=== PATIENT | female | born 1950 | race Caucasian/White ===

== ENCOUNTER 2017-03-21 10:32 | Outpatient (CLI) | payer MEDICARE, OTHER | END 2017-03-21 10:33 | disposition home or self-care (01) | LOC: BICMAMMO 10:32 | PROVIDERS: ATTEND Internal Medicine | DX: Z12.31 Encounter for screening mammogram for malignant neoplasm of breast (principal) | CPT/HCPCS: 77063; 77067 ==

== ENCOUNTER 2017-08-22 09:02 | Emergency (ER) | payer MEDICARE, OTHER ==
[2017-08-22 10:09] LABS: Hemoglobin 13.2 g/dL (12.0-16.0); Mean Corpuscular HGB CONC 33.6 g/dL (32.0-36.0); Mean Corpuscular Hemoglobin 31.5 pg (27.0-31.0); Mean Corpuscular Volume 93.9 fL (78.0-98.0); Mean Platelet Volume 7.4 fL (7.4-10.4); Platelet Count 227 thou/uL (130-400); RBC Distribution Width 12.8 % (11.5-14.5); Red Blood Cell (RBC) Count 4.19 mill/uL (4.20-5.40); White Blood Cell (WBC) Count 4.7 thou/uL (4.8-10.8)
[2017-08-22 10:32] LABS: Band 31 % (5-11); Lymphocytes 16 % (21-51); MDiff Complete? YES; Monocytes 11 % (0-10); Neutrophil 42 % (42-75); RBC Morphology Normal
[2017-08-22 10:38] LABS: ALT (SGPT) 19 U/L (8-55); AST (SGOT) 26 U/L (5-34); Albumin 3.8 g/dL (3.4-4.8); Alkaline Phosphatase 72 U/L (40-150); Anion Gap 14 mmol/L (10-20); BUN (Urea Nitrogen) 13 mg/dL (9.8-20.1); Bilirubin, Total 0.4 mg/dL (0.2-1.2); Calc. Creatinine Clearance 0 mL/min (70-130); Calcium 8.7 mg/dL (7.8-10.44); Carbon Dioxide 24 mmol/L (23-31); Chloride 98 mmol/L (98-107); Estimated GFR-MDRD 77; Globulin 2.4 g/dL (2.4-3.5); Glucose 95 mg/dL (80-115); Lipase 30 U/L (8-78); Magnesium 1.9 mg/dL (1.6-2.6); Protein, Total 6.2 g/dL (6.0-8.3); Sodium 133 mmol/L (136-145)
[2017-08-22 10:57] LABS: Potassium 2.8 mmol/L (3.5-5.1)
[2017-08-22] MEDS ORDERED: Potassium Chloride 20 MEQ/100 ML PREMIX BAG ONE (11:28)
[2017-08-22] MEDS ORDERED: Potassium Chloride 20 MEQ TAB ONE (11:29)
[2017-08-22] MEDS ORDERED: Potassium Chloride 20 MEQ in Premix Bag 1 BAG IVPB SCH (11:30)
== END 2017-08-22 12:48 | disposition home or self-care (01) ==
LOC: ERS 09:02
DX: E87.6 Hypokalemia (principal); E78.5 Hyperlipidemia, unspecified; I10 Essential (primary) hypertension; F41.9 Anxiety disorder, unspecified; F17.210 Nicotine dependence, cigarettes, uncomplicated; Z79.899 Other long term (current) drug therapy
CPT/HCPCS: 80053; 82274; 83690; 83735; 85025; 93005; 96361; 96365; J3480

== ENCOUNTER 2017-09-25 19:24 | Observation (INO) | payer MEDICARE, OTHER ==
[2017-09-25 20:13] LABS: Hemoglobin 14.9 g/dL (12.0-16.0); Mean Corpuscular HGB CONC 34.7 g/dL (32.0-36.0); Mean Corpuscular Hemoglobin 32.7 pg (27.0-31.0); Mean Corpuscular Volume 94.2 fL (78.0-98.0); Mean Platelet Volume 7.7 fL (7.4-10.4); Platelet Count 210 thou/uL (130-400); Red Blood Cell (RBC) Count 4.55 mill/uL (4.20-5.40); White Blood Cell (WBC) Count 6.6 thou/uL (4.8-10.8)
[2017-09-25 20:23] LABS: ALT (SGPT) 13 U/L (8-55); AST (SGOT) 14 U/L (5-34); Albumin 4.5 g/dL (3.4-4.8); Alkaline Phosphatase 68 U/L (40-150); Anion Gap 12 mmol/L (10-20); BUN (Urea Nitrogen) 14 mg/dL (9.8-20.1); Band 4 % (5-11); Bilirubin, Total 0.6 mg/dL (0.2-1.2); CK (CPK) 80 U/L (29-168); Calc. Creatinine Clearance 0 mL/min (70-130); Calcium 9.4 mg/dL (7.8-10.44); Carbon Dioxide 23 mmol/L (23-31); Chloride 106 mmol/L (98-107); Estimated GFR-MDRD 85; Globulin 2.5 g/dL (2.4-3.5); Glucose 103 mg/dL (80-115); Lipase 38 U/L (8-78); Lymphocytes 17 % (21-51); MDiff Complete? YES; Monocytes 7 % (0-10); Neutrophil 72 % (42-75); PLT Morphology Comment Appears Adequate; Potassium 3.9 mmol/L (3.5-5.1); Sodium 137 mmol/L (136-145)
[2017-09-25 20:27] LABS: CKMB 1.9 ng/mL (0-6.6); Troponin I Less than 0.010 ng/mL (< 0.028)
--- NOTE | 2017-09-25 20:34 | RAD ---
CHEST ONE VIEW: History: Chest pain. FINDINGS: Cardiac silhouette is magnified by projection. Pulmonary vasculature is unremarkable. Mediastinum is midline with aortic calcification. No confluent airspace consolidation or evidence of pneumothorax. C ardiac monitor leads overlie the chest. IMPRESSION: Atherosclerosis. POS: [facility]
[2017-09-25 22:51] LABS: Bilirubin Negative (Negative); Blood, Urine Small (Negative); Clarity CLEAR (Clear); Glucose, Urine (Dipstick) Negative (Negative); Leukocyte Negative (Negative); Nitrite Negative (Negative); Protein, Urine (Dipstick) Negative (Neg-Trace); Specific Gravity, Urine 1.016 (1.002-1.036); Urobilinogen 0.2 mg/dL (0.2-1.0); pH, Urine 5.5 (5.0-9.0)
[2017-09-25 22:54] LABS: Bacteria/HPF None Seen HPF (None Seen); Hyaline Casts/LPF 0-3 HYALINE CAST LPF (0-3 Hyaline); RBC/HPF 0-3 HPF (0-3); Squamous Epithelial 0-3 HPF (0-3); WBC/HPF 0-3 HPF (0-3)
[2017-09-25] MEDS ORDERED: PARoxetine 20 MG TAB PO SCH (23:15)
[2017-09-26 00:06] LABS: Troponin I Less than 0.010 ng/mL (< 0.028)
[2017-09-26] MEDS ORDERED: HYDROcodone/Acetaminophen 5/325 mg Tablet PO PRN ×2 (00:37)
[2017-09-26] MEDS ORDERED: Ondansetron ODT 4 MG TAB SL PRN (00:37)
[2017-09-26] MEDS ORDERED: Ondansetron HCl/PF 4 MG/2 ML Vial IVP PRN (00:37)
[2017-09-26] MEDS ORDERED: Acetaminophen 325 MG TAB PO PRN ×2 (00:37→20:36)
[2017-09-26 03:01] LABS: Troponin I Less than 0.010 ng/mL (< 0.028)
[2017-09-26] MEDS ORDERED: PARoxetine 20 MG TAB PO SCH (09:00)
[2017-09-26] MEDS ORDERED: ALPRAZolam 0.25 MG TAB PO SCH (10:45)
[2017-09-26] MEDS: ALPRAZolam 0.25 MG TAB PO SCH ×2 (11:00→16:55)
[2017-09-26 14:59] VITALS: BMI 19.1
[2017-09-26] MEDS ORDERED: Ondansetron HCl/PF 4 MG/2 ML Vial SLOW IVP PRN (19:03)
[2017-09-26] MEDS: busPIRone HCl 10 MG TAB PO SCH (20:55)
[2017-09-26] MEDS: ALPRAZolam 0.5 MG TAB PO SCH (20:55)
[2017-09-26] MEDS: Atorvastatin Calcium 20 MG TAB PO SCH (20:55)
[2017-09-26] MEDS ORDERED: ALPRAZolam 0.5 MG TAB PO SCH (21:00)
--- NOTE | 2017-09-26 21:32 | HP ---
CHIEF COMPLAINT: Decreased appetite, nausea, anxiety. HISTORY OF PRESENT ILLNESS: Ms. Frazier is a 67-year-old female with past medical history o f hypertension, anxiety disorder, who has been having anxiety issues as well as anorexia for the last few weeks. The patient states he is unable to eat anything and has lost weight as well, but no abdo marvin pain, no vomiting. The patient also mentioned to the ER physician that she has some chest pain as well, which is a dull ache in the chest, not associated with any diaphoresis. No shortness of br eath. It does not radiate. The patient came to the emergency room where she was evaluated and admit dora to rule out myocardial infarction and further evaluation. The patient received aspirin, Paxil an d Xanax in the ER. PAST MEDICAL HISTORY: 1. Anxiety disorder. 2. Hypertension. 3. Hyperlipidemia. PAST SURGICAL HISTORY: Total hysterectomy. CURRENT MEDICATIONS: Xanax 0.5 t.i.d. BuSpar 10 mg b.i.d., lisinopril 10 mg daily, simvastatin 40 mg daily. FAMILY HISTORY: DIPHTHERIA PERTUSSIS VACCINES. SOCIAL HISTORY: This patient lives with family. She smokes one pack a day. She has been smoking fo r 30 years. No history of alcohol intake. REVIEW OF SYSTEMS: Cardiovascular: Has chest pain. No shortness of breath. Respiratory: No fever or cough. Gastrointestinal: Has nausea and anorexia, and weight loss. No abdominal pain. No head ache, no dizziness. PHYSICAL EXAMINATION: GENERAL: Patient is alert and oriented x3. VITAL SIGNS: Temperature 98, pulse 57, respiration 20, blood pressure 140/80. HEENT: Head is normocephalic, atraumatic. Pupils equal and reactive to light. Nasopharynx is pale and dry. Hard and soft palate, no lesions seen. SKIN: Skin turgor decreased. NECK: Supple. No JVD. LUNGS: Bilaterally clear. No rales, no rhonchi. HEART: S1 and S2. Regular. ABDOMEN: Soft. No distention, no tenderness. Normal bowel sounds. NEUROLOGIC: No focal deficit. LABORATORY AND X-RAY FINDINGS: CBC shows WBC 6.6, hemoglobin 14, hematocrit 42, platelets 210. [place] bolic panel: Sodium 137, potassium 3.9, chloride 106, CO2 of 3, urea nitrogen 14, creatinine 0.6. C K-MB 1.9, troponin less than 0.010. Urinalysis negative. Chest x-ray negative. EKG shows normal si nus, no acute ST-T changes seen. ASSESSMENT: 1. Nausea, anorexia and weight loss. 2. Questionable chest pain, rule out myocardial infarction. 3. Anxiety disorder. 4. Depression. 5. Hypertension. 6. Hyperlipidemia. PLAN: 1. Vital signs q.4 hours. 2. Activity: As tolerated. 3. Allergies to DIPHTHERIA PERTUSSIS VACCINES. 4. Diet: Cardiac and troponin I q.6h. x2. 5. Protonix 40 mg daily. 6. Continue home medication. 7. GI consult.
[2017-09-27] MEDS: ALPRAZolam 0.5 MG TAB PO SCH ×3 (07:50→22:15)
[2017-09-27] MEDS: Lisinopril 10 MG TAB PO SCH (07:50)
[2017-09-27] MEDS: busPIRone HCl 10 MG TAB PO SCH ×2 (07:50→22:15)
--- NOTE | 2017-09-27 12:03 | CT ---
CT ABDOMEN AND PELVIS WITH IV AND ORAL CONTRAST: History: Abdominal pain. Decreased appetite. Comparison: 10-01-16 FINDINGS: Lung bases are clear. Prominent calcification throughout the arterial structures with fusiform ectasi a of the lower abdominal aorta. Solid organs are unremarkable. Circumferential wall thickening of the stomach is now apparent most pronounced at the gastric fundus and body. Degenerative changes lumbar spine. IMPRESSION: 1. Given the patient's symptoms of decreased appetite. The circumferential wall thickening of the gas tric fundus and body must be viewed with some degree of concern, although no focal mass is apparent. Please consider endoscopic evaluation. 2. Prominent atherosclerosis. POS: [facility]
[2017-09-27] MEDS ORDERED: Lidocaine 1% PF 5 ML VIAL ONE (13:52)
[2017-09-27] MEDS ORDERED: PROPOFOL 200 MG/20 ML VIAL ONE (13:52)
[2017-09-27] MEDS ORDERED: Promethazine HCl 25 MG/ML VIAL SLOW IVP PRN (21:24)
[2017-09-27] MEDS ORDERED: Promethazine HCl 25 MG/ML VIAL IM PRN (21:24)
[2017-09-27] MEDS ORDERED: Ondansetron HCl/PF 4 MG/2 ML Vial IVP PRN (21:24)
[2017-09-27] MEDS: Atorvastatin Calcium 20 MG TAB PO SCH (22:15)
--- NOTE | 2017-09-28 00:19 | CON ---
DATE OF CONSULTATION: 09/27/2017 REASON FOR CONSULTATION: Anorexia, weight loss, abnormal GI imaging. CONSULTING PHYSICIAN: Dr. Altaf Fine. HISTORY OF PRESENT ILLNESS: The patient is a 67-year-old female with past medical history of hyperte nsion, anxiety, hyperlipidemia and depression, presenting with complaints of anorexia. She states th at she has been having "feelings of sick to my stomach" for the last 4 months that have progressively gotten worse over this time. This anorexia was also associated with complaints of early satiety and a weight loss of approximately 8-12 pounds over the last 3-4 months. She was initially placed on mi rtazapine as a possible appetite stimulant, but she did not experience any significant improvement on this medication; however, she was also discontinued on the use of Paxil which had been her primary a ntidepressant for years and she was also experiencing increased stress during the same time related t o family dynamics. She was recently started on buspirone, but that was only within the last week wit h no other medication changes. She also endorses night sweats that will soak her bed sheets that hav e been present for the last 3-4 months as well. Otherwise, she denies any nausea, vomiting, fever, c hills, abdominal pain, GI bleeding, dysphagia or odynophagia. Of note, she was initially admitted fr om the ER with complaints of chest pain for cardiac rule out, but she does not endorse any chest pain at this time. REVIEW OF SYSTEMS: A 10-category review of systems was obtained with all responses negative except f or the pertinent positives as listed in the HPI. PAST MEDICAL HISTORY: As per HPI. PAST SURGICAL HISTORY: Total hysterectomy. FAMILY HISTORY: Denies any GI malignancies. SOCIAL HISTORY: She continues to smoke one pack of cigarettes daily and has been smoking for the las t 30+ years. She denies any tobacco or illicit drug use. OUTPATIENT MEDICATIONS: Reviewed. ALLERGIES: DIPHTHERIA/PERTUSSIS VACCINE. PHYSICAL EXAMINATION: VITAL SIGNS: Temperature 98.5, pulse 60, blood pressure 126/65, respiratory rate 16, satting 95% on room air. GENERAL: The patient was lying in bed in no acute distress. Alert and oriented x4. NECK: Supple. No JVD noted. CARDIOVASCULAR: Regular rate and rhythm with no discernible murmurs, gallops or rubs. RESPIRATORY: Clear to auscultation bilaterally with no discernible wheezes or rales. ABDOMEN: Normoactive bowel sounds, soft, nontender, nondistended. EXTREMITIES: No cyanosis, clubbing or edema. LABORATORY DATA: CBC with a white blood cell count of 6.6, hemoglobin 14.9, hematocrit 42.8, platele ts 210. Chemistry with sodium of 137, potassium 3.9, chloride 106, CO2 23, BUN 14, creatinine 0.69, glucose 103, AST 14, ALT 13, alkaline phosphatase 68, total bilirubin 0.6. Troponins negative x3. L ipase 38. IMAGING DATA: CT of the abdomen and pelvis obtained on 09/27/2017 showed circumferential wall thicke terry of the gastric fundus and body, most pronounced at the gastric heard now apparent with some conc emanuel for possible malignancy. ASSESSMENT AND PLAN: The patient is a 67-year-old female with past medical history of hypertension, anxiety, hyperlipidemia, and depression, presenting with complaints of anorexia and weight loss with abnormal GI imaging. Abnormal GI imaging. The patient is presenting with a history of anorexia, early satiety and weight loss for approximately 3-4 months prior to admission with around 8-12 pound weight loss during this t ever. She also endorses increased night sweats during the same time period as well as a CT scan on admission showing circumferential wall thickening of the stomach within the fundus and body. She does not currently have any laboratory derangements, but with the complaint of anorexia, early satiet y and coupled with a possible inflammatory infiltrative process, it is highly concerning for possible malignancy. Differential could include gastritis via H. pylori or NSAIDs, infiltrative process like amyloidosis/sarcoid (unlikely) lymphoma, leukemia, nonspecific gastropathy and/or GI neoplasm. RECOMMENDATIONS: 1. We would keep the patient n.p.o. in preparation for EGD later on tonight. 2. We would continue to PPI. 3. Further recommendations to follow upper endoscopy. We will continue to follow. Please call with any questions.
--- NOTE | 2017-09-28 00:55 | OP ---
DATE OF PROCEDURE: 09/27/2017 PROCEDURE: Esophagogastroduodenoscopy with biopsy. INDICATION FOR PROCEDURE: Midepigastric abdominal discomfort, abnormal GI imaging. DESCRIPTION OF PROCEDURE: After the risks and benefits of the procedure were explained to the patien t including risks of bleeding, infection, perforation, reactions to anesthesia, aspiration and/or cee n, informed consent was obtained. The patient was then taken to the endoscopy suite where deep sedat ion was administered via propofol and anesthesia support. Once adequate sedation was achieved, the s tandard gastroscope was introduced into the mouth with intubation of the esophagus, stomach, and the proximal small intestine with the findings listed below. The patient tolerated the procedure well wi th no immediate perioperative complications. FINDINGS: Esophagus: Normal appearing mucosa was seen in the proximal, mid, and distal esophagus with the GE j unction and diaphragmatic pinch were well seen at approximately 40 cm past the incisors. There was n o evidence of erosions, ulcerations, mass lesions, or active/recent bleeding. Stomach: Normal appearing mucosa was seen in the gastric cardia, fundus, body, greater curvature, an trum, and incisura. There was no evidence of erosions, ulcerations, mass lesions, or active/recent b leeding. Multiple random biopsies were taken from the gastric fundus, body, incisura, and antrum for determination of a possible infiltrative process based on CT findings. Duodenum. A 5-mm submucosal nodule was seen in the duodenal bulb just proximal to the duodenal sweep . It had overlying mucosal erythema, but no overt erosion or ulceration. Biopsy was taken of this n odule and placed in specimen jar for further evaluation. Otherwise, the second portion of the duoden um had normal appearing mucosa. There was no evidence of erosions, ulcerations, mass lesions, or act andrew/recent bleeding seen during this portion of the exam. IMPRESSION: 1. A 5-mm submucosal nodule seen in the duodenal bulb, status post biopsies. 2. Otherwise, normal upper endoscopy. RECOMMENDATIONS: 1. We will follow up on biopsy results with further care guided by pathology report. 2. We will continue proton-pump inhibitor 40 mg daily for possible acid reflux contributing to anore inderjit and early satiety. 3. Continue with treatment of anxiety/depression as this may contribute to increased anorexia and/or early satiety. 4. Would consider non-GI source of patient's anorexia/early satiety. We will continue to follow. Please call with any questions.
[2017-09-28] MEDS: busPIRone HCl 10 MG TAB PO SCH (08:19)
[2017-09-28] MEDS: ALPRAZolam 0.5 MG TAB PO SCH (08:20)
[2017-09-28] MEDS: Lisinopril 10 MG TAB PO SCH (08:20)
[2017-09-28 08:22] VITALS: BP 128/77; TEMP 98.4
--- NOTE | 2017-09-29 14:30 | DIS ---
DATE OF ADMISSION: 09/25/2017 DATE OF DISCHARGE: 09/28/2017 ADMITTING DIAGNOSES: 1. Nausea, anorexia, and weight loss. 2. Questionable chest pain, rule out myocardial infarction. 3. Anxiety disorder. 4. Depression. 5. Hypertension. 6. Hyperlipidemia. FINAL DIAGNOSES: 1. Nausea, resolved; anorexia, improving. 2. Chest pain. No evidence of acute myocardial infarction. 3. Anxiety disorder. 4. Depression. 5. Hypertension. 6. Hyperlipidemia. 7. Nodule in duodenal bulb. BRIEF SUMMARY OF HOSPITAL COURSE: Ms. Frazier is a 67-year-old female admitted because of nausea, severe anorexia, and weight loss going on for some time, also had some atypical chest pain. Patient was initially admitted to rule out MA and evaluation for anorexia and nausea. Patient had serial cardiac enzymes troponin I less than 0.010, third one also less than 0.010. Patient did not have much chest pain, but she had abdominal discomfort as well as nausea, unable to eat anything, unable to keep anything down. In view of that, patient was started on Protonix and have consulted with GI. The patient was seen by Dr. Ribeiro. He suggested EGD in view of her anorexia and weight loss. CT scan of the abdomen done earlier revealed some decrease in the gastric fundus and body. Patient underwent EGD showed submucosal nodule in the duodenal bulb, otherwise normal EGD. Patient continued on Protonix and patient was started on diet and she tolerated diet very well and has been eating better. In view of improvement, patient was discharged. At the time of discharge, she was stable. Her vital signs stable. Lungs clear. Heart sounds regular. Abdomen soft, nontender. Bowel sounds present. DISCHARGE MEDICATIONS: Include lisinopril 10 mg daily, BuSpar 10 mg b.i.d., simvastatin 40 mg at bedtime, Xanax 0.5 t.i.d., Prozac 20 mg daily, Protonix 40 mg daily. FOLLOWUP: Patient will come for followup in [address] [facility]
--- NOTE | 2017-10-01 14:03 | EKG ---
Test Reason : Blood Pressure : / mmHG Vent. Rate : 068 BPM Atrial Rate : 068 BPM P-R Int : 118 ms QRS Dur : 072 ms QT Int : 430 ms P-R-T Axes : 068 050 072 degrees QTc Int : 457 ms Normal sinus rhythm -Suspect Junctional rhythm (no discernible P waves) Possible Left atrial enlargement Borderline ECG Confirmed by MONA MASON ([id number]), editorial director GIN HEMPHILL ([id number]) on 10/01/2017 2:02:56 PM Referred By: Confirmed By:MONA MASON
== END 2017-09-28 15:14 | disposition home or self-care (01) ==
LOC: ERS 19:24 → 2SW 23:50
PROVIDERS: ADMIT Internal Medicine; ATTEND Internal Medicine
PROC: 0DB98ZX Excision of Duodenum, Via Natural or Artificial Opening Endoscopic, Diagnostic (ICD-10-PCS; principal; 2017-09-25)
PROC: 0DB68ZX Excision of Stomach, Via Natural or Artificial Opening Endoscopic, Diagnostic (ICD-10-PCS; 2017-09-25)
DX: K63.89 Other specified diseases of intestine (principal); K31.9 Disease of stomach and duodenum, unspecified; R11.0 Nausea; R07.9 Chest pain, unspecified; I10 Essential (primary) hypertension; F41.9 Anxiety disorder, unspecified; E78.5 Hyperlipidemia, unspecified; F17.210 Nicotine dependence, cigarettes, uncomplicated; F32.9 Major depressive disorder, single episode, unspecified; R63.0 Anorexia; R63.4 Abnormal weight loss; Z68.1 Body mass index [BMI] 19.9 or less, adult; Z79.899 Other long term (current) drug therapy; Z88.7 Allergy status to serum and vaccine
CPT/HCPCS: 43239; 51701; 71045; 74177; 82550; 82553; 83690; 84484 ×3; 87045; 87046; 87077; 87086; 87147; 87186; 87324; 87449 ×2; 87899 ×2; 88305; 88312; 93005; 94760; 99285; G0378 ×3; 36415; 80053; 81003; 81015; 84443; 85025; A4353; J2001; J2704

== ENCOUNTER 2017-10-02 10:35 | Emergency (ER) | payer MEDICARE, OTHER ==
[2017-10-02 11:29] LABS: Bilirubin Negative (Negative); Blood, Urine Moderate (Negative); Clarity CLEAR (Clear); Glucose, Urine (Dipstick) Negative (Negative); Leukocyte Negative (Negative); Nitrite Negative (Negative); Protein, Urine (Dipstick) Negative (Neg-Trace); Specific Gravity, Urine 1.015 (1.002-1.036); Urobilinogen 0.2 mg/dL (0.2-1.0)
[2017-10-02 11:32] LABS: Bacteria/HPF None Seen HPF (None Seen); Hyaline Casts/LPF 0-3 HYALINE CAST LPF (0-3 Hyaline); Pathc Cast-AUWi Flag 0.58 (0-2.49); Squamous Epithelial 0-3 HPF (0-3); WBC/HPF 0-3 HPF (0-3)
[2017-10-02] MEDS ORDERED: Ondansetron ODT 4 MG TAB ONE (11:32)
[2017-10-02] MEDS ORDERED: Lorazepam 1 MG TAB ONE (11:33)
[2017-10-02 11:44] LABS: ALT (SGPT) 14 U/L (8-55); AST (SGOT) 14 U/L (5-34); Albumin 4.4 g/dL (3.4-4.8); Alkaline Phosphatase 67 U/L (40-150); Anion Gap 12 mmol/L (10-20); BUN (Urea Nitrogen) 11 mg/dL (9.8-20.1); Bilirubin, Total 0.5 mg/dL (0.2-1.2); Calc. Creatinine Clearance 0 mL/min (70-130); Calcium 9.8 mg/dL (7.8-10.44); Carbon Dioxide 28 mmol/L (23-31); Chloride 103 mmol/L (98-107); Estimated GFR-MDRD 81; Globulin 2.7 g/dL (2.4-3.5); Glucose 103 mg/dL (80-115); Potassium 4.1 mmol/L (3.5-5.1); Protein, Total 7.1 g/dL (6.0-8.3)
[2017-10-02 11:46] LABS: Troponin I Less than 0.010 ng/mL (< 0.028)
[2017-10-02 11:47] LABS: Sodium 139 mmol/L (136-145)
--- NOTE | 2017-10-05 13:46 | EKG ---
Test Reason : CHEST PAIN Blood Pressure : / mmHG Vent. Rate : 060 BPM Atrial Rate : 060 BPM P-R Int : 124 ms QRS Dur : 072 ms QT Int : 450 ms P-R-T Axes : 080 051 067 degrees QTc Int : 450 ms Normal sinus rhythm Possible Left atrial enlargement Borderline ECG Confirmed by MOSES NEGRETE, AYDEE ([id number]), editor publications GIN HEMPHILL ([id number]) on 10/05/2017 1:45:34 PM Referred By: Confirmed By:AYDEE LOPES MD
== END 2017-10-02 12:25 | disposition home or self-care (01) ==
LOC: ERS 10:35
DX: F32.9 Major depressive disorder, single episode, unspecified (principal); E78.5 Hyperlipidemia, unspecified; I10 Essential (primary) hypertension; F41.9 Anxiety disorder, unspecified; F17.210 Nicotine dependence, cigarettes, uncomplicated; Z79.899 Other long term (current) drug therapy
CPT/HCPCS: 36415; 51701; 80053; 81003; 81015; 82553; 84484; 93005; A4353; Q0162

== ENCOUNTER 2017-10-03 09:50 | Emergency (ER) | payer MEDICARE, OTHER ==
[2017-10-03] MEDS ORDERED: Lidocaine Viscous Sol 2% 15 ml UD Cup ONE (10:10)
[2017-10-03] MEDS ORDERED: Mag-Al 1200 mg/1200 mg/30 ML UDCUP ONE (10:10)
== END 2017-10-03 11:12 | disposition home or self-care (01) ==
LOC: ERS 09:50
DX: R13.10 Dysphagia, unspecified (principal); E78.5 Hyperlipidemia, unspecified; I10 Essential (primary) hypertension; F32.9 Major depressive disorder, single episode, unspecified; F41.9 Anxiety disorder, unspecified; F17.210 Nicotine dependence, cigarettes, uncomplicated; Z79.899 Other long term (current) drug therapy
CPT/HCPCS: 99283

== ENCOUNTER 2017-10-03 20:54 | Emergency (ER) | payer MEDICARE, OTHER | END 2017-10-03 21:40 | disposition left against medical advice (07) | LOC: ERS 20:54 | DX: Z53.21 Procedure and treatment not carried out due to patient leaving prior to being seen by health care provider (principal) ==

== ENCOUNTER 2017-10-06 11:36 | Observation (INO) | payer MEDICARE, OTHER ==
[2017-10-06 13:29] LABS: Bilirubin Negative (Negative); Blood, Urine Negative (Negative); Clarity CLEAR (Clear); Glucose, Urine (Dipstick) Negative (Negative); Leukocyte Negative (Negative); Nitrite Negative (Negative); Protein, Urine (Dipstick) Negative (Neg-Trace); Specific Gravity, Urine 1.013 (1.002-1.036); Urobilinogen 0.2 mg/dL (0.2-1.0); pH, Urine 6.5 (5.0-9.0)
--- NOTE | 2017-10-06 14:48 | CT ---
CT BRAIN WITHOUT CONTRAST: Date: 10/06/17 HISTORY: Numbness in left arm. FINDINGS: There are no previous exams for comparison. No evidence of acute infarct, hemorrhage, midline shift, or abnormal extra-axial fluid collections ar e seen. The ventricular size is appropriate and the basilar cisterns are patent. The bony calvarium i s intact. The visualized paranasal sinuses and mastoid air cells are well aerated. IMPRESSION: No CT evidence of acute intracranial process. POS: [facility]
[2017-10-06] MEDS ORDERED: ALPRAZolam 0.5 MG TAB ONE (14:51)
--- NOTE | 2017-10-06 15:04 | RAD ---
CHEST 1 VIEW: HISTORY: Chest pain. COMPARISON: Chest radiograph 09/25/17. FINDINGS: Lungs are slightly hyperinflated. No pneumothorax or effusion. Cardiac silhouette and mediastinal c ontour is within normal limits. IMPRESSION: No acute intrthoracic abnormality. POS: [facility]
[2017-10-06 15:43] LABS: #Eosinphils 0.1 thou/uL (0.0-0.7); #Lymphocytes 2.1 thou/uL (1.20-3.40); #Monocytes 0.6 thou/uL (0.11-0.59); #Neutrophils 4.6 thou/uL (1.40-6.50); %Basophils 0.7 % (0.0-1.0); %Eosinophils 0.7 % (0.0-10.0); %Lymphocytes 28.8 % (21.0-51.0); %Monocytes 7.5 % (0.0-10.0); %Neutrophils 62.4 % (42.0-75.0); Hemoglobin 14.9 g/dL (12.0-16.0); Mean Corpuscular HGB CONC 34.1 g/dL (32.0-36.0); Mean Corpuscular Hemoglobin 32.3 pg (27.0-31.0); Mean Corpuscular Volume 94.8 fL (78.0-98.0); Mean Platelet Volume 7.4 fL (7.4-10.4); Platelet Count 308 thou/uL (130-400); RBC Distribution Width 12.9 % (11.5-14.5); Red Blood Cell (RBC) Count 4.62 mill/uL (4.20-5.40); White Blood Cell (WBC) Count 7.3 thou/uL (4.8-10.8)
[2017-10-06 15:54] LABS: ALT (SGPT) 14 U/L (8-55); AST (SGOT) 13 U/L (5-34); Albumin 4.6 g/dL (3.4-4.8); Alkaline Phosphatase 63 U/L (40-150); Anion Gap 15 mmol/L (10-20); BUN (Urea Nitrogen) 16 mg/dL (9.8-20.1); Bilirubin, Total 0.5 mg/dL (0.2-1.2); CKMB 0.8 ng/mL (0-6.6); Calc. Creatinine Clearance 0 mL/min (70-130); Calcium 9.4 mg/dL (7.8-10.44); Carbon Dioxide 26 mmol/L (23-31); Chloride 100 mmol/L (98-107); Estimated GFR-MDRD 77; Globulin 2.8 g/dL (2.4-3.5); Glucose 95 mg/dL (80-115); Magnesium 2.4 mg/dL (1.6-2.6); Phosphorus 3.8 mg/dL (2.3-4.7); Potassium 4.7 mmol/L (3.5-5.1); Protein, Total 7.4 g/dL (6.0-8.3); Sodium 136 mmol/L (136-145); Troponin I Less than 0.010 ng/mL (< 0.028)
[2017-10-06 18:43] VITALS: BMI 20.1
[2017-10-06] MEDS ORDERED: Temazepam 15 MG CAP PO PRN (19:27)
[2017-10-06] MEDS: ALPRAZolam 0.5 MG TAB PO SCH (20:33)
[2017-10-06] MEDS: busPIRone HCl 10 MG TAB PO SCH (20:33)
[2017-10-06] MEDS ORDERED: Atorvastatin Calcium 20 MG TAB PO SCH (21:00)
[2017-10-07] MEDS: ALPRAZolam 0.5 MG TAB PO SCH (07:25)
[2017-10-07] MEDS ORDERED: Lisinopril 10 MG TAB PO SCH (09:00)
[2017-10-07] MEDS: busPIRone HCl 10 MG TAB PO SCH (09:18)
--- NOTE | 2017-10-07 10:04 | MRI ---
MRA OF THE HEAD WITHOUT IV CONTRAST: INDICATION: TIA. TECHNIQUE: Three-D [id number] images were obtained of the major intracranial artery without IV contrast. No comparisons are available. FINDINGS: The left vertebral artery is diminutive. The right vertebral artery appears dominant. The basilar a rtery is not patent. The visualized posterior cerebral arteries are patent. Right posterior communi cating and left posterior communicating arteries are patent. The intracranial ICAs appear patent. T he ACAs and MCA branches appear widely patent. IMPRESSION: No hemodynamically significant stenosis, occlusion, or aneurysmal formation demonstrated. POS: [facility]
--- NOTE | 2017-10-07 10:05 | MRI ---
MRI OF THE BRAIN WITHOUT CONTRAST: Date: 10/07/17 INDICATION: History of numbness in the left arm. COMPARISON: CT of the brain dated 10/06/17. FINDINGS: No area of restricted diffusion is seen to suggest the presence of acute infarct. Septum pellucidum a nd third ventricle are midline. No acute intracranial hemorrhage is demonstrated. There is mild chron ic small vessel white matter ischemic change. There are appropriate flow-voids seen within the major intracranial vessels. Skull and extracranial soft tissues appear within normal limits. IMPRESSION: No acute intracranial abnormality demonstrated. POS: [facility]
--- NOTE | 2017-10-07 10:34 | MRI ---
NONCONTRAST MRA NECK WITH 3D RECONSTRUCTIONS: DATE: 10/07/17. HISTORY: TIA. TECHNIQUE: Three-D [id number] images of the carotid arteries are obtained with 3D maximum-intensity projecti on reformatted images provided. FINDINGS: The visualized bilateral common carotid arteries are patent. The most proximal common carotid arteri es including aortic arch are not imaged on this exam. The visualized right internal carotid artery i s patent. There does appear to be moderate narrowing at the origin of the right external carotid ar kristin. There is mild (less than 50%) stenosis involving the origin and proximal left internal carotid artery according to NASCET criteria. The remainder of the left internal carotid artery is patent. There i s also what appears to be moderate narrowing involving the origin of the left external carotid artery . The vertebral artery origins are not visualized, but the bilateral vertebral arteries are patent wher e visualized to the level of the C1 vertebral body. IMPRESSION: 1. Mild (less than 50%) stenosis involving the origin and proximal left internal carotid artery base d on NASCET criteria. 2. No significant stenosis is seen involving the right internal carotid artery based on NASCET crite amos. 3. The bilateral vertebral arteries are incompletely imaged proximally or distally, but where seen a re patent. POS: [facility]
[2017-10-07 12:16] VITALS: TEMP 97.6
[2017-10-07] MEDS ORDERED: ALPRAZolam 0.5 MG TAB PO SCH (13:00)
--- NOTE | 2017-10-07 13:09 | CON ---
DATE OF CONSULTATION: 10/07/2017 CHIEF COMPLAINT: Numbness and pain in the left arm. HISTORY OF PRESENT ILLNESS: The patient is a 67-year-old right-handed lady who reports she has had severe anxiety disorder and she has been on various medications including she was on Paxil and Xanax for a while and she suddenly stopped her Paxil which triggered another anxiety events and she is currently waiting to see a psychiatrist and has been given an appointment in November. Her symptoms are mostly consistent with left arm numbness along with tightness and pain in the arm. She remembers having had a CT scan of the neck and was seeing pain management physicians for neck problems and she stated has cervical canal stenosis. Her current brain MRI is negative for acute stroke. She does not report any leg weakness or any weakness in the arm on the left side. No facial weakness or double vision or loss of consciousness or seizures are reported. PAST MEDICAL HISTORY: She reports she is otherwise pretty healthy other than anxiety disorder, which she feels is hereditary and she inherited it from her mother. She has history of spinal canal stenosis, hyperlipidemia and hypertension. SOCIAL HISTORY: She is a smoker, smokes up to 1 pack a day. No alcohol or drug use. MEDICATIONS: At home are simvastatin, lisinopril, Xanax, buspirone, pantoprazole, Prozac, Zofran, and Lipitor. FAMILY HISTORY: Positive for anxiety disorder in her mother. SURGICAL HISTORY: Positive for a hysterectomy. REVIEW OF SYSTEMS: GENERAL: Positive for weight loss due to lack of appetite and not eating well. CARDIOVASCULAR: No chest pains or palpitations. GASTROINTESTINAL: No nausea, vomiting or abdominal pain. GENITOURINARY: Negative. NEUROLOGIC: Positive for left arm pain and numbness. DERMATOLOGIC: Negative for any skin problems. ENDOCRINE: Negative for thyroid dysfunction. LABORATORY DATA: Her white count 7.3, hemoglobin 14.9, hematocrit 43.8, platelets 308. Chemistries: Sodium 136, potassium 4.7, bicarbonate 26, BUN 16 , creatinine 0.75, AST 13, ALT 14, alkaline phosphatase 63. UA is negative and her MRI of the brain is normal. No acute ischemic event is noted and there is mild chronic white matter ischemic changes. On the MR angiogram of the neck she has mild less than 50% stenosis involving the origin and proximal left ICA based on acid criteria. No stenosis involving the right carotid artery and bilateral vertebral arteries or incomplete, but otherwise patent and her brain, MR angiogram was negative for any stenosis. PHYSICAL EXAMINATION: VITAL SIGNS: Blood pressure is 114/77, temperature 98.9, pulse 65, respiratory rate 16. CHEST: Clear vesicular breathing. CARDIAC: S1, S2 heard, no murmurs. Carotids are clear. ABDOMEN: Soft, nontender, no organomegaly noted. NEUROLOGICAL EXAMINATION HIGHER INTELLECTUAL FUNCTIONS: Normal orientation to time place and person, appropriate conversation CRANIAL NERVES: Normal EOM, Normal visual moreno by confrontation method, normal sensation of face bilaterally, pupils are equal reactive to light, no facial asymmetry, normal hearing to finger rub bilaterally, normal elevation of palate, tongue midline no atrophy noted. MOTOR: Bulk normal, tone normal, strength 5/5 in upper and lower extremities, in iliopsoas, hamstrings, quadriceps, ankle dorsiflexion, plantar flexion, deltoid, biceps, triceps, wrist extension/flexion, and finger extension and flexion bilaterally. Deep tendon reflexes 2+ throughout in upper and lower extremities and in biceps, triceps, brachioradialis, knee jerks and ankle jerks bilaterally. SENSORY: Normal touch, pinprick, proprioception and vibration bilaterally and temperature bilaterally. Gait not tested. CEREBELLAR: Normal [id number], heel to minor. IMPRESSION: The patient is a 67-year-old lady with a history of left arm numbness and left arm pain. She does have a negative MRI for acute stroke. Her neurological examination is essentially normal, but the patient is reporting numbness and pain in the left arm and there is no involvement of the face. At this time, her examination essentially normal, but she may have some cervical stenosis and cervical radiculopathy which needs to be addressed and we need to make sure there are no critical issues as far as her neck is concerned prior to discharge. Diagnosis is likely Cervical stenosis with cervical radiculopathy. RECOMMENDATIONS: I will request a dedicated MRI of the cervical spine to address this question and if that MRI is negative, she can be discharged home to the care of her primary care that she is already planned for psychiatric evaluation. DESTINY
[2017-10-07 14:58] VITALS: BP 109/59
--- NOTE | 2017-10-08 00:20 | HP ---
DATE OF ADMISSION: 10/06/2017 REASON FOR ADMISSION AND CHIEF COMPLAINT: Left-sided numbness, paresthesias. HISTORY OF PRESENT ILLNESS: Ms. Frazier is a 67-year-old female with past medical history o f anxiety disorder and hypertension, who came with sudden onset of left arm numbness and paresthesias started around midnight. The patient's states that symptoms go away and come back again, did not roe ve any weakness on the left side. No left leg weakness, numbness, or paresthesias. No speech proble ms. No chest pain, no shortness of breath, no right-sided weakness or numbness. The patient was rec ently in the hospital for anorexia and weight loss. Had EGD done. The patient came to the emergency room because of worsening left arm numbness. In the ER, the patient was evaluated and found to have normal EKG and CT scan. She is admitted to rule out TIA or CVA. PAST MEDICAL HISTORY: 1. Hypertension. 2. Anxiety disorder. 3. Hyperlipidemia. PAST SURGICAL HISTORY: Status post hysterectomy. CURRENT MEDICATIONS: Simvastatin 40 mg daily, lisinopril 10 mg daily, Xanax 0.5 t.i.d., BuSpar 10 mg b.i.d., Protonix 40 mg daily, Prozac 20 mg daily. ALLERGIES: TDAP. REVIEW OF SYSTEMS: Unremarkable except for the left arm paresthesias. PHYSICAL EXAMINATION: GENERAL: The patient is alert, awake, oriented x3. VITAL SIGNS: Temperature 98, pulse 60, respirations 20, blood pressure 130/80. HEENT: Head is normocephalic, atraumatic. Pupils are equal and reactive to light. Nasopharynx is p jazmine and dry. Hard and soft palate. No lesions seen. SKIN: Skin turgor decreased. NECK: Supple. No JVD. LUNGS: Bilateral air entry present. No rales or rhonchi. CARDIAC: S1 and S2 regular. ABDOMEN: Soft, no distention, no tenderness. Normal bowel sounds present. RECTAL: Deferred. CENTRAL NERVOUS SYSTEM: The patient is alert, awake, oriented x3. Motor system power 5/5 in all ext remities. Deep tendon reflexes 2+ bilaterally. Plantar downgoing. Sensory intact. LABORATORY AND X-RAY FINDINGS: CBC shows WBC 7.7, hemoglobin 14, hematocrit 43, platelets 308. [place] bolic panel: Sodium 136, potassium 4.7, chloride 101, CO2 of 26, urea nitrogen 16, creatinine 0.7, g lucose 95. Urinalysis negative. CT scan of the brain unremarkable, no acute intracranial process se en. Chest x-ray, no acute intrathoracic abnormalities seen. EKG showed normal sinus rhythm, no acut e ST-T wave changes seen. ASSESSMENT: 1. Left upper extremity numbness and paresthesias, rule out cerebrovascular accident, rule out of tr ansient ischemic attack. 2. Anxiety disorder. 3. Hypertension. 4. History of anorexia and weight loss. PLAN: 1. Vital signs q.4 hours. 2. Activity: As tolerated. 3. Allergies: TDAP. 4. Hep-Lock. 5. Continue home medication. 6. Regular diet. 7. Restoril 15 mg at bedtime for insomnia. 8. We will obtain MRI of the brain.
[2017-10-08] MEDS ORDERED: FLUoxetine HCl 20 MG CAP PO SCH (09:00)
--- NOTE | 2017-10-11 14:21 | DIS ---
DATE OF ADMISSION: 10/06/2017 DATE OF DISCHARGE: 10/07/2017 ADMITTING DIAGNOSES: 1. Left upper extremity numbness and paresthesias, rule out cerebrovascular accident, rule out transient ischemic attack. 2. Anxiety disorder. 3. Hypertension. 4. History of anorexia and weight loss. FINAL DIAGNOSES: 1. Left upper extremity numbness, paresthesias resolving. No evidence of cerebrovascular accident. No evidence of transient ischemic attack. 2. Anxiety disorder. 3. Hypertension 4. Anorexia and weight loss. BRIEF SUMMARY OF HOSPITAL COURSE: Ms. Kailey Frazier is a 67-year-old female with past medical history of anxiety disorder admitted with left upper extremity paresthesias as well as numbness which got worse, so she came to the hospital. She was admitted to rule out transient ischemic attack and CVA. Initial CAT scan was negative. MRI of the brain was done which was also unremarkable. Neck MRA was done no carotid stenosis. A consultation with Neurology. Patient was seen by neurologist who suggested MRI of the cervical spine because of the concern for cervical stenosis, cervical radiculopathy. The MRA could not be done. She may have to get it done as an outpatient, but her numbness almost resolved. Her echocardiogram was reported as normal left ventricular function with ejection fraction of 55%. In view of improvement, the patient was discharged. At the time of discharge, she was stable. Her vital signs stable. Lungs were clear. Heart sounds regular. Abdomen is soft, pertinent bowel sounds. DISCHARGE MEDICATIONS: Include lisinopril 10 mg daily, simvastatin 40 mg daily , BuSpar 10 mg b.i.d., Xanax 0.5 q.i.d., Protonix 40 mg daily, Prozac 20 mg daily. FOLLOWUP: The patient will come for followup next week. [facility]
== END 2017-10-07 14:21 | disposition home or self-care (01) ==
LOC: ERS 11:36 → 2SE 17:00
PROVIDERS: ADMIT Internal Medicine; ATTEND Internal Medicine
DX: R20.2 Paresthesia of skin (principal); F41.9 Anxiety disorder, unspecified; I10 Essential (primary) hypertension; E78.5 Hyperlipidemia, unspecified; F17.210 Nicotine dependence, cigarettes, uncomplicated; R63.0 Anorexia; Z68.20 Body mass index [BMI] 20.0-20.9, adult; Z79.899 Other long term (current) drug therapy; Z88.7 Allergy status to serum and vaccine
CPT/HCPCS: 70450; 70544; 70547; 70551; 71045; 80053; 81003; 82553; 83735; 84100; 84484; 85025; 93005; 93306; 97139; 99285; G0378 ×2; G8978; G8979; G8980; 36415

== ENCOUNTER 2018-06-22 10:37 | Outpatient (CLI) | payer MEDICARE, OTHER ==
--- NOTE | 2018-06-22 11:15 | MMO ---
Bilateral MAMMO Bilat Screen [facility]. CLINICAL HISTORY: Patient is 67 years old and is seen for screening. The patient has no family history of breast cancer. The patient has no personal history of cancer. VIEWS: The views performed were: bilateral craniocaudal with tomosynthesis and bilateral mediolateral oblique with tomosynthesis. FILMS COMPARED: The present examination has been compared to prior imaging studies performed at [facility] on 03/14/2012, 01/24/2014, 01/27/2015, 03/17/2016 and 03/21/2017. MAMMOGRAM FINDINGS: The breasts are heterogeneously dense, which could obscure a lesion on mammography. There are no suspicious masses, suspicious calcifications, or new areas of architectural distortion. IMPRESSION: THERE IS NO MAMMOGRAPHIC EVIDENCE OF MALIGNANCY. A ROUTINE FOLLOW-UP MAMMOGRAM IN 1 YEAR IS RECOMMENDED. THE RESULTS OF THIS EXAM WERE SENT TO THE PATIENT. ACR BI-RADS Category 1 - Negative MAMMOGRAPHY NOTE: 1. A negative mammogram report should not delay a biopsy if a dominant of clinically suspicious mass is present. 2. Approximately 10% to 15% of breast cancers are not detected by mammography. 3. Adenosis and dense breasts may obscure an underlying neoplasm.
== END 2018-06-22 10:38 | disposition home or self-care (01) ==
LOC: BICMAMMO 10:37
PROVIDERS: ATTEND Internal Medicine
DX: Z12.31 Encounter for screening mammogram for malignant neoplasm of breast (principal)
CPT/HCPCS: 77063; 77067

== ENCOUNTER 2018-12-15 13:47 | Outpatient (CLI) | payer MEDICARE, OTHER ==
--- NOTE | 2018-12-15 15:08 | MRI ---
MRI CERVICAL SPINE WITHOUT CONTRAST: HISTORY: Cervical pain. Left arm and left hand tingling, times many years.. COMPARISON: 11/14/2014. FINDINGS: Appropriate T1 marrow signal intensity of the cervical vertebra. Cervical spine vertebral body height is maintained. No fracture. No significant STIR hyperintensity to suggest vertebral body edema or ligamentous injury. Spondylolisthesis: Less than 1 mm of anterolisthesis of C3 upon C4. Approximately 1 mm of anterolisthesis of C4 upon C5. Visualized brain parenchyma, cervicomedullary junction, cervical, and the upper thoracic cord have a normal size and signal intensity. C2-C3: No significant central canal stenosis or significant neural foraminal narrowing. C3-C4: No significant posterior disc-osteophyte complex. No significant central canal stenosis. Right neural foramen is patent. Moderate left foraminal narrowing due to uncovertebral and facet hypertrophy. C4-C5: Broad-based disc-osteophyte complex with a central component that abuts the thecal sac. There is contact upon the ventral cord, without cord signal abnormality. No significant central canal stenosis. Neural foramina are patent bilaterally. C5-C6: Broad-based disc-osteophyte complex with a right paracentral component. Mass effect upon the r ight hemicord, without cord signal abnormality. Moderate central canal stenosis along the right aspect of the central spinal canal. Moderate right and [id number] left foraminal narrowing due to uncovertebral hypertrophy. C6-C7: Broad-based disc-osteophyte complex abuts the thecal sac. Subarachnoid space is maintained. Mi ld central canal stenosis. Moderate bilateral foraminal narrowing due to uncovertebral hypertrophy. C7-T1: No significant central canal stenosis or significant neural foraminal narrowing. IMPRESSION: Degenerative changes of the cervical spine as described above. Transcribed Date/Time: 12/15/2018 3:20 PM
== END 2018-12-15 13:48 | disposition home or self-care (01) ==
LOC: BICMRI 13:47
PROVIDERS: ATTEND Neurological Surgery
DX: M50.30 Other cervical disc degeneration, unspecified cervical region (principal)
CPT/HCPCS: 72141

== ENCOUNTER 2019-01-15 08:19 | Observation (INO) | payer MEDICARE, OTHER ==
[2019-01-12 11:59] VITALS: BMI 22.3
[2019-01-15] MEDS ORDERED: Sodium Chloride 0.9% 10 ML ONE (08:46)
[2019-01-15 09:05] LABS: #Lymphocytes 1.5 thou/uL (1.20-3.40); #Monocytes 0.5 thou/uL (0.11-0.59); #Neutrophils 4.4 thou/uL (1.40-6.50); %Basophils 0.6 % (0.0-1.0); %Eosinophils 0.7 % (0.0-10.0); %Lymphocytes 22.4 % (21.0-51.0); %Monocytes 8.1 % (0.0-10.0); %Neutrophils 68.1 % (42.0-75.0); Hemoglobin 14.6 g/dL (12.0-16.0); Mean Corpuscular HGB CONC 32.2 g/dL (32.0-36.0); Mean Corpuscular Hemoglobin 31.2 pg (27.0-31.0); Mean Platelet Volume 7.5 fL (7.4-10.4); Platelet Count 308 thou/uL (130-400); Red Blood Cell (RBC) Count 4.69 mill/uL (4.20-5.40); White Blood Cell (WBC) Count 6.5 thou/uL (4.8-10.8)
[2019-01-15 09:16] LABS: Anion Gap 15 mmol/L (10-20); BUN (Urea Nitrogen) 17 mg/dL (9.8-20.1); Calc. Creatinine Clearance 58 mL/min (70-130); Calcium 9.6 mg/dL (7.8-10.44); Carbon Dioxide 26 mmol/L (23-31); Chloride 107 mmol/L (98-107); Estimated GFR-MDRD 73; Glucose 101 mg/dL (80-115); Potassium 4.8 mmol/L (3.5-5.1); Sodium 143 mmol/L (136-145)
[2019-01-15] MEDS ORDERED: Glycopyrrolate 0.2 MG/ML 5 ML SYRINGE ONE (10:02)
[2019-01-15] MEDS ORDERED: Rocuronium Bromide 10 MG/ML (10ML VIAL) ONE (10:02)
[2019-01-15] MEDS ORDERED: Dexamethasone 20 MG/5 ML VIAL ONE (10:02)
[2019-01-15] MEDS ORDERED: Lidocaine 1% PF 5 ML VIAL ONE (10:02)
[2019-01-15] MEDS ORDERED: Ondansetron PF 4 MG/2 ML Vial ONE (10:02)
[2019-01-15] MEDS ORDERED: PROPOFOL 200 MG/20 ML VIAL ONE (10:02)
[2019-01-15] MEDS ORDERED: Fentanyl 100 MCG/2 ML VIAL ONE ×4 (10:33→13:22)
[2019-01-15] MEDS ORDERED: PACU-Morphine 4MG/ML VIAL SLOW IVP PRN (11:26)
[2019-01-15] MEDS ORDERED: Morphine Sulfate 2 MG/ML SYRINGE SLOW IVP PRN (11:26)
[2019-01-15] MEDS ORDERED: Ondansetron HCl/PF 4 MG/2 ML Vial IVP PRN (11:26)
[2019-01-15] MEDS ORDERED: HYDROmorphone 2 MG/ML VIAL SLOW IVP PRN (11:26)
[2019-01-15] MEDS ORDERED: Promethazine HCl 25 MG/ML VIAL SLOW IVP PRN (11:26)
[2019-01-15] MEDS ORDERED: Promethazine HCl 25 MG/ML VIAL IM PRN (11:26)
[2019-01-15] MEDS ORDERED: SUGAMMADEX SODIUM 200 MG/2 ML VIAL ONE (11:30)
[2019-01-15] MEDS ORDERED: Midazolam HCl 2 mg/2 ml Vial ONE (11:54)
--- NOTE | 2019-01-15 12:27 | OP ---
DATE OF PROCEDURE: 01/15/2019 NECK CUTTER: Eligio Cano PA-C PROCEDURES PERFORMED: C4-C5 and C5-C6 anterior cervical diskectomy, interbody arthrodesis, intervertebral biomechanical device, local morselized autograft, demineralized bone matrix, and anterior titanium instrumentation C4 through C6. DESCRIPTION OF PROCEDURE: The patient was brought to the operating room and intubated. She was positioned supine with head in modest extension on gel-filled donut. An incision was made in the right precervical area and dissected medial to the sternocleidomastoid muscle, identified the anterior cervical spinal, and the level was confirmed by x-ray. We debrided the anterior osteophytes, placed distraction across the disk spaces. The C4-C5 disk was found to be largely auto fused. The bony endplates were decorticated for the purpose of arthrodesis and appropriate-sized intervertebral biomechanical PEEK device was brought into the field. It was filled with demineralized bone matrix and local morselized autograft, and tapped in place securely at C4-C5 and C5-C6. Next, an anterior plate was brought into the field and secured to C4, C5, and C6 using two 14-mm screws at each level. The wound was then extensively irrigated. MAC hemostasis was secured. The wound was closed in anatomic layers over drain. Job ID: [id number]
[2019-01-15] MEDS ORDERED: HYDROcodone/Acetaminophen 10/325 mg Tablet PO PRN (12:57)
[2019-01-15] MEDS ORDERED: Morphine 4 MG/ML VIAL SLOW IVP PRN (12:57)
[2019-01-15] MEDS ORDERED: traMADol HCl 50 MG TAB PO PRN ×2 (12:57)
[2019-01-15] MEDS ORDERED: Milk Of Magnesia 30 ML UDCUP PO PRN (12:57)
[2019-01-15] MEDS ORDERED: Ondansetron PF 4 MG/2 ML Vial IVP PRN (12:57)
[2019-01-15] MEDS ORDERED: diphenhydrAMINE 50 MG/ML VIAL IVP PRN (12:57)
[2019-01-15] MEDS ORDERED: Sodium Chloride 0.9% 1,000 ML IV SCH (12:57)
[2019-01-15] MEDS ORDERED: Morphine 2 MG/ML SYRINGE SLOW IVP PRN (12:57)
[2019-01-15] MEDS ORDERED: diphenhydrAMINE 25 MG CAP PO PRN (12:57)
[2019-01-15] MEDS ORDERED: Mag-Al 1200 mg/1200 mg/30 ML UDCUP PO PRN (12:57)
[2019-01-15] MEDS ORDERED: CEFAZOLIN 2 GM in Premix Bag 1 BAG IVPB SCH (16:00)
[2019-01-15] MEDS ORDERED: ALPRAZolam 0.5 MG TAB PO PRN (17:01)
[2019-01-15] MEDS ORDERED: Senokot 8.6 MG TAB PO PRN (17:03)
[2019-01-15] MEDS: ALPRAZolam 0.25 MG TAB PO PRN ×2 (17:33→23:40)
[2019-01-15] MEDS: tiZANidine HCl 4 MG TAB PO PRN ×2 (17:37→23:40)
[2019-01-15] MEDS: CEFAZOLIN 2 GM in Premix Bag 1 BAG IVPB SCH (18:18)
[2019-01-15] MEDS: HYDROcodone/Acetaminophen 10/325 mg Tablet PO PRN ×2 (19:00→23:45)
[2019-01-15] MEDS ORDERED: Atorvastatin Calcium 20 MG TAB PO SCH (21:00)
[2019-01-15] MEDS ORDERED: OLANZapine 2.5 MG TAB PO SCH (21:00)
[2019-01-16] MEDS: CEFAZOLIN 2 GM in Premix Bag 1 BAG IVPB SCH (01:32)
[2019-01-16] MEDS: ALPRAZolam 0.25 MG TAB PO PRN ×2 (06:00→10:50)
[2019-01-16] MEDS: HYDROcodone/Acetaminophen 10/325 mg Tablet PO PRN ×2 (06:00→10:44)
[2019-01-16] MEDS: tiZANidine HCl 4 MG TAB PO PRN (06:00)
[2019-01-16 08:11] VITALS: BP 127/72; TEMP 97.7
--- NOTE | 2019-01-16 08:59 | DIS ---
DATE OF ADMISSION: 01/15/2019 DATE OF DISCHARGE: 01/16/2019 The patient is a 68-year-old female, who was recently seen in our office for progressive neck pain and underwent C4 through C6 ACDF for cervical degenerative disease. Following the surgery, she was transitioned to the floor, where her pain was well controlled with p.o. medications. She was tolerating a regular diet, and she was voiding appropriately. She has been up ambulating easily throughout the hallways. She does have a PATTI drain placed intraoperatively, which had minimal output over the first night, only 15 mL. This drain was removed on postoperative day #1. The patient had no complications from her surgery. We will plan to dismiss the patient to home. I have arranged follow up in 2 weeks. She has been provided for scripts for Huson and Zanaflex. I have discussed home care precautions. Job ID: [id number]
[2019-01-16] MEDS ORDERED: Lisinopril 20 MG TAB PO SCH (09:00)
[2019-01-16] MEDS ORDERED: PARoxetine 20 MG TAB PO SCH (09:00)
[2019-01-16] MEDS ORDERED: Fish Oil 1,000 MG CAP PO SCH (09:00)
== END 2019-01-16 11:25 | disposition home or self-care (01) ==
LOC: SDC 08:19 → 3SE 12:46
PROVIDERS: ADMIT Neurological Surgery; ATTEND Neurological Surgery
PROC: 0RG20A0 Fusion of 2 or more Cervical Vertebral Joints with Interbody Fusion Device, Anterior Approach, Anterior Column, Open Approach (ICD-10-PCS; principal; 2019-01-15)
PROC: 0RG2070 Fusion of 2 or more Cervical Vertebral Joints with Autologous Tissue Substitute, Anterior Approach, Anterior Column, Open Approach (ICD-10-PCS; 2019-01-15)
PROC: 0RT30ZZ Resection of Cervical Vertebral Disc, Open Approach (ICD-10-PCS; 2019-01-15)
DX: M54.12 Radiculopathy, cervical region (principal); I10 Essential (primary) hypertension; E78.5 Hyperlipidemia, unspecified; F32.9 Major depressive disorder, single episode, unspecified; Z79.899 Other long term (current) drug therapy; Z88.7 Allergy status to serum and vaccine
CPT/HCPCS: 20930; 20936; 22551; 22552; 22845; 22853 ×2; 76000; 80048; 85025; 93005; C1713 ×2; C1776; 36415; 93010; 96365; G0378; J0131; J0690; J1100; J2001; J2250; J2405; J2704; J3010; J3490

== ENCOUNTER 2019-02-05 08:15 | Outpatient (CLI) | payer MEDICARE, OTHER ==
--- NOTE | 2019-02-05 08:37 | RAD ---
EXAM: XR Cerv Sp Ap Lat STANDARD PROVIDED CLINICAL HISTORY: Cervical radiculopathy. Follow-up postsurgical changes. COMPARISON: FINDINGS: C1 to the cervicothoracic junction is seen on the lateral view. Postsurgical changes related to anter ior cervical fusion are noted with an anterior plate and screws transfixing the C4-5 and C5-6 levels. Intradiscal prostheses are noted at these levels. No hardware complication is seen. No fractu re or subluxation is identified. There is straightening of the normal cervical lordotic curvature. The odontoid is not well seen on the odontoid view due to overlying structures. There are prominent d egenerative changes seen at the articulation of the lateral masses of C1 and C2 on the left which was seen on prior MRI cervical spine on 12/15/2018. Facet degenerative changes are seen in the lower c ervical spine, and there is suggestion of posterior fusion of the posterior elements of the C2 and C3 vertebral bodies. Prevertebral soft tissues are within normal limits. IMPRESSION: 1. Postsurgical changes related to anterior cervical fusion at the C4-C6 levels. 2. Scattered degenerative changes in the cervical spine.
== END 2019-02-05 08:16 | disposition home or self-care (01) ==
LOC: TBSIIMAG 08:15
PROVIDERS: ATTEND Neurological Surgery
DX: M47.22 Other spondylosis with radiculopathy, cervical region (principal); Z98.1 Arthrodesis status
CPT/HCPCS: 72040

== ENCOUNTER 2019-04-03 13:34 | Outpatient (CLI) | payer MEDICARE, OTHER ==
--- NOTE | 2019-04-03 13:49 | RAD ---
EXAM: Cervical spine: 3 views INDICATIONS: Cervical degeneration. Postop. COMPARISON: 02/05/2019 FINDINGS: Postoperative changes from anterior fusion procedure again noted. Anterior plate and screws transfix C4, C5, and C6. Interbody implants at these levels again noted and are unchanged in position. Vertebral bodies maintain height and alignment. Disc narrowing degenerative changes at C6-7 again noted. IMPRESSION: Degenerative and postoperative changes of cervical spine appears stable from prior exam.
== END 2019-04-03 13:35 | disposition home or self-care (01) ==
LOC: TBSIIMAG 13:34
PROVIDERS: ATTEND Neurological Surgery
DX: M50.323 Other cervical disc degeneration at C6-C7 level (principal); Z98.1 Arthrodesis status
CPT/HCPCS: 72040

== ENCOUNTER 2019-06-29 17:36 | Emergency (ER) | payer MEDICARE, OTHER ==
[2019-06-29 19:13] LABS: #Basophils 0.1 thou/uL (0.0-0.2); #Lymphocytes 2.7 thou/uL (1.20-3.40); #Monocytes 0.7 thou/uL (0.11-0.59); #Neutrophils 4.2 thou/uL (1.40-6.50); %Basophils 0.9 % (0.0-1.0); %Eosinophils 0.6 % (0.0-10.0); %Lymphocytes 35.1 % (21.0-51.0); %Monocytes 8.9 % (0.0-10.0); %Neutrophils 54.6 % (42.0-75.0); Hemoglobin 16.5 g/dL (12.0-16.0); Mean Corpuscular Hemoglobin 32.5 pg (27.0-31.0); Mean Corpuscular Volume 98.5 fL (78.0-98.0); Mean Platelet Volume 7.9 fL (7.4-10.4); Platelet Count 315 thou/uL (130-400); RBC Distribution Width 13.3 % (11.5-14.5); Red Blood Cell (RBC) Count 5.09 mill/uL (4.20-5.40); White Blood Cell (WBC) Count 7.8 thou/uL (4.8-10.8)
[2019-06-29 19:29] LABS: Bacteria/HPF None Seen HPF (None Seen); Bilirubin Negative (Negative); Blood, Urine 1+ (Negative); Clarity Clear (Clear); Glucose, Urine (Dipstick) Normal (Negative); Leukocyte 25 Leu/uL (Negative); Nitrite Negative (Negative); Protein, Urine (Dipstick) Negative (Neg-Trace); RBC/HPF 0-3 HPF (0-3); Squamous Epithelial 0-3 HPF (0-3); Urobilinogen Normal mg/dL (Less than 2); WBC/HPF 0-3 HPF (0-3)
[2019-06-29 19:36] LABS: ALT (SGPT) 13 U/L (8-55); AST (SGOT) 15 U/L (5-34); Albumin 4.8 g/dL (3.4-4.8); Alkaline Phosphatase 74 U/L (40-110); Anion Gap 11 mmol/L (10-20); BUN (Urea Nitrogen) 9 mg/dL (9.8-20.1); Bilirubin, Total 0.6 mg/dL (0.2-1.2); Calc. Creatinine Clearance 0 mL/min (70-130); Calcium 9.5 mg/dL (7.8-10.44); Carbon Dioxide 30 mmol/L (23-31); Chloride 104 mmol/L (98-107); Estimated GFR-MDRD 73; Globulin 3.1 g/dL (2.4-3.5); Glucose 82 mg/dL (80-115); Lipase 24 U/L (8-78); Potassium 3.5 mmol/L (3.5-5.1); Protein, Total 7.9 g/dL (6.0-8.3); Sodium 141 mmol/L (136-145)
--- NOTE | 2019-06-29 19:37 | RAD ---
CHEST ONE VIEW: 06/29/19 HISTORY: Chest pain. COMPARISON: Radiograph 10/06/17. FINDINGS: There is background lung hyperinflation. Round opacity projects over the lower abdomen and completely evaluated likely extrinsic to the patient. No confluent air space consolidation, pneumothorax or eff usion. Small likely calcified granuloma projecting over the left upper lobe. IMPRESSION: No acute intrathoracic abnormality. Findings of obstructive pulmonary disease. POS: HOME
== END 2019-06-29 20:10 | disposition home or self-care (01) ==
LOC: ERS 17:36
DX: R63.0 Anorexia (principal); R35.0 Frequency of micturition; I10 Essential (primary) hypertension; E78.5 Hyperlipidemia, unspecified; F41.9 Anxiety disorder, unspecified; F32.9 Major depressive disorder, single episode, unspecified; F17.210 Nicotine dependence, cigarettes, uncomplicated; Z79.899 Other long term (current) drug therapy
CPT/HCPCS: 71045; 80053; 81003; 81015; 83690; 85025

== ENCOUNTER 2019-10-25 12:02 | Outpatient (CLI) | payer MEDICARE, OTHER ==
--- NOTE | 2019-10-25 12:50 | MMO ---
Bilateral MAMMO Bilat Screen [facility]. CLINICAL HISTORY: Patient is 69 years old and is seen for screening. The patient has no family history of breast cancer. The patient has no personal history of cancer. VIEWS: The views performed were: bilateral craniocaudal with tomosynthesis and bilateral mediolateral oblique with tomosynthesis. FILMS COMPARED: The present examination has been compared to prior imaging studies performed at [facility] on 01/27/2015, 03/17/2016, 03/21/2017 and 06/22/2018. This study has been interpreted with the assistance of computer-aided detection. MAMMOGRAM FINDINGS: The breasts are heterogeneously dense, which could obscure a lesion on mammography. There are no suspicious masses, suspicious calcifications, or new areas of architectural distortion. IMPRESSION: THERE IS NO MAMMOGRAPHIC EVIDENCE OF MALIGNANCY. A ROUTINE FOLLOW-UP MAMMOGRAM IN 1 YEAR IS RECOMMENDED. THE RESULTS OF THIS EXAM WERE SENT TO THE PATIENT. ACR BI-RADS Category 1 - Negative MAMMOGRAPHY NOTE: 1. A negative mammogram report should not delay a biopsy if a dominant of clinically suspicious mass is present. 2. Approximately 10% to 15% of breast cancers are not detected by mammography. 3. Adenosis and dense breasts may obscure an underlying neoplasm. Reported by: CISCO BELLA MD Electonically Signed: [id number]
== END 2019-10-25 12:03 | disposition home or self-care (01) ==
LOC: BICMAMMO 12:02
PROVIDERS: ATTEND Internal Medicine
DX: Z12.31 Encounter for screening mammogram for malignant neoplasm of breast (principal)
CPT/HCPCS: 77063; 77067

== ENCOUNTER 2020-10-27 08:33 | Outpatient (CLI) | payer MEDICARE, OTHER | END 2020-10-27 08:34 | disposition home or self-care (01) | LOC: BICMAMMO 08:33 | PROVIDERS: ATTEND Internal Medicine | DX: Z12.31 Encounter for screening mammogram for malignant neoplasm of breast (principal) | CPT/HCPCS: 77063; 77067 ==

== ENCOUNTER 2021-10-28 09:46 | Outpatient (CLI) | payer MEDICARE, OTHER | END 2021-10-28 09:47 | disposition home or self-care (01) | LOC: BICMAMMO 09:46 | PROVIDERS: ATTEND Internal Medicine | DX: Z12.31 Encounter for screening mammogram for malignant neoplasm of breast (principal) | CPT/HCPCS: 77063; 77067 ==

== ENCOUNTER 2021-11-03 08:50 | Outpatient (CLI) | payer MEDICARE, OTHER | END 2021-11-03 08:51 | disposition home or self-care (01) | LOC: BICULT 08:50 | PROVIDERS: ATTEND Internal Medicine | DX: N64.89 Other specified disorders of breast (principal) | CPT/HCPCS: 76642; 77065; G0279 ==

== ENCOUNTER 2022-11-15 12:39 | Outpatient (CLI) | payer MEDICARE, OTHER | END 2022-11-15 12:40 | disposition home or self-care (01) | LOC: BICMAMMO 12:39 | PROVIDERS: ATTEND Internal Medicine | DX: Z12.31 Encounter for screening mammogram for malignant neoplasm of breast (principal) | CPT/HCPCS: 77063; 77067 ==

== ENCOUNTER 2023-02-06 11:42 | Observation (INO) | payer MEDICARE, OTHER ==
[2023-02-06] MEDS ORDERED: Aspirin Chewable 81 MG TAB ONE (14:12)
[2023-02-06 14:46] LABS: #Basophils 0.1 thou/uL (0.0-0.2); #Monocytes 0.5 thou/uL (0.11-0.59); #Neutrophils 4.9 thou/uL (1.40-6.50); %Basophils 0.6 % (0.0-1.0); %Eosinophils 0.3 % (0.0-10.0); %Lymphocytes 27.7 % (21.0-51.0); Hematocrit 44.5 % (36.0-47.0); Hemoglobin 14.9 g/dL (12.0-16.0); Mean Corpuscular HGB CONC 33.5 g/dL (32.0-36.0); Mean Corpuscular Hemoglobin 31.3 pg (27.0-31.0); Mean Corpuscular Volume 93.5 fl (78.0-98.0); Mean Platelet Volume 9.6 fL (7.4-10.4); Platelet Count 351 10x3/uL (130-400); RBC Distribution Width 14.6 % (11.5-14.5); Red Blood Cell (RBC) Count 4.76 mill/uL (4.20-5.40); White Blood Cell (WBC) Count 7.7 10x3/uL (4.8-10.8)
[2023-02-06 15:36] LABS: ALT (SGPT) 16 U/L (8-55); AST (SGOT) 18 U/L (5-34); Albumin 4.6 g/dL (3.4-4.8); Alkaline Phosphatase 73 U/L (40-110); Anion Gap 14 mmol/L (10-20); BUN (Urea Nitrogen) 12 mg/dL (9.8-20.1); Bilirubin, Total 0.8 mg/dL (0.2-1.2); Calc. Creatinine Clearance 0 mL/min (70-130); Calcium 9.1 mg/dL (7.8-10.44); Carbon Dioxide 25 mmol/L (23-31); Chloride 100 mmol/L (98-107); Estimated GFR 89; Globulin 3.2 g/dL (2.4-3.5); Glucose 93 mg/dL (83-110); Lipase 21 U/L (8-78); Potassium 3.8 mmol/L (3.5-5.1); Protein, Total 7.8 g/dL (5.8-8.1); Sodium 135 mmol/L (136-145)
[2023-02-06 16:50] LABS: Troponin I Less than 0.010 ng/mL (< 0.028)
[2023-02-06] MEDS ORDERED: Acetaminophen 325 MG TAB PO PRN (18:15)
[2023-02-06] MEDS ORDERED: ALPRAZolam 0.5 MG TAB PO SCH (18:15)
[2023-02-06] MEDS ORDERED: Senokot S 8.6-50 MG TAB PO PRN (18:15)
[2023-02-06] MEDS ORDERED: Nitroglycerin 0.4 MG TAB (25 Tab Bottle) SL PRN (18:20)
[2023-02-06 19:57] LABS: Troponin I Less than 0.010 ng/mL (< 0.028)
[2023-02-06 20:35] VITALS: BMI 18.4
[2023-02-06] MEDS ORDERED: OLANZapine 5 MG TAB PO SCH (21:00)
[2023-02-06] MEDS: busPIRone HCl 10 MG TAB PO SCH (21:47)
[2023-02-06 22:11] LABS: Troponin I Less than 0.010 ng/mL (< 0.028)
[2023-02-06] MEDS ORDERED: ALPRAZolam 0.5 MG TAB PO PRN (23:59)
[2023-02-07 04:45] LABS: #Basophils 0.1 thou/uL (0.0-0.2); #Eosinphils 0.1 thou/uL (0.0-0.7); #Monocytes 0.5 thou/uL (0.11-0.59); #Neutrophils 2.3 thou/uL (1.40-6.50); %Basophils 0.9 % (0.0-1.0); %Eosinophils 2.2 % (0.0-10.0); %Lymphocytes 44.4 % (21.0-51.0); %Monocytes 9.9 % (0.0-10.0); %Neutrophils 42.2 % (42.0-75.0); Hematocrit 43.8 % (36.0-47.0); Hemoglobin 14.5 g/dL (12.0-16.0); Mean Corpuscular HGB CONC 33.1 g/dL (32.0-36.0); Mean Corpuscular Hemoglobin 30.7 pg (27.0-31.0); Mean Corpuscular Volume 92.6 fl (78.0-98.0); Platelet Count 331 10x3/uL (130-400); RBC Distribution Width 14.6 % (11.5-14.5); Red Blood Cell (RBC) Count 4.73 mill/uL (4.20-5.40); White Blood Cell (WBC) Count 5.5 10x3/uL (4.8-10.8)
[2023-02-07 05:06] LABS: Anion Gap 14 mmol/L (10-20); BUN (Urea Nitrogen) 13 mg/dL (9.8-20.1); Calc. Creatinine Clearance 52 mL/min (70-130); Calcium 9.1 mg/dL (7.8-10.44); Carbon Dioxide 24 mmol/L (23-31); Cardiac Risk 3.2 (Less than 4.5); Chloride 104 mmol/L (98-107); Cholesterol 166 mg/dl (< 200 Desired); Estimated GFR 92; Glucose 91 mg/dL (83-110); HDL Cholesterol 52 mg/dL (>60 Neg Risk); LDL Cholesterol, Calculated 93 mg/dL; Potassium 3.5 mmol/L (3.5-5.1); Sodium 138 mmol/L (136-145); Triglycerides 104 mg/dL (Less than 150)
[2023-02-07] MEDS ORDERED: Enoxaparin 40 MG (0.4 mL) SYRINGE SC SCH (09:00)
[2023-02-07] MEDS ORDERED: Lisinopril 10 MG TAB PO SCH (09:00)
[2023-02-07 09:45] VITALS: BP 125/73; TEMP 98.1
[2023-02-07] MEDS: busPIRone HCl 10 MG TAB PO SCH (10:28)
[2023-02-07] MEDS ORDERED: Regadenoson 0.4 MG/5 ML SYRINGE ONE (10:58)
[2023-02-08] MEDS ORDERED: Enoxaparin 30 MG (0.3 mL) SYRINGE SC SCH (09:00)
== END 2023-02-07 16:22 | disposition home or self-care (01) ==
LOC: ERS 11:42 → ERHOLD 17:38 → 2NO 20:23
PROVIDERS: ADMIT Family Medicine; ATTEND Internal Medicine
DX: R07.9 Chest pain, unspecified (principal); F41.9 Anxiety disorder, unspecified; F32.A Depression, unspecified; E78.5 Hyperlipidemia, unspecified; I10 Essential (primary) hypertension; F17.210 Nicotine dependence, cigarettes, uncomplicated; Z88.8 Allergy status to other drugs, medicaments and biological substances; Z79.899 Other long term (current) drug therapy; Z98.890 Other specified postprocedural states
CPT/HCPCS: 71045; 78452; 80048; 80061; 83690; 84484 ×2; 85025; 93005; 93017; 99284; A9502; G0378 ×2; J2785; 36415; 80053; 84443

== ENCOUNTER 2023-04-18 15:41 | Inpatient (IN) | payer MEDICARE, OTHER ==
[~2023-04-18 15:41] MED LIST: Iopamidol-370 76% 500 ML MDV (1 ML CHARGE) ONE
[2023-04-18 18:02] LABS: Bilirubin Negative (Negative); Blood, Urine Moderate (Negative); Glucose, Urine (Dipstick) Negative (Negative); Ketone, Urine Negative (Negative); Leukocyte Moderate (Negative); Nitrite Negative (Negative); Protein, Urine (Dipstick) Negative (Neg-Trace); Specific Gravity, Urine 1.015 (1.005-1.030); Urobilinogen 0.2 mg/dL (Less than 2)
[2023-04-18 18:08] LABS: Bacteria/HPF None Seen HPF (None Seen); CAUTI Indications for Culture Dysuria,urgency,freq; Squamous Epithelial 0-3 HPF (0-3); WBC/HPF Greater than 50 HPF (0-3)
[2023-04-18 18:09] LABS: Clarity Clear (Clear)
[2023-04-18 18:18] LABS: #Neutrophils 8.6 thou/uL (1.40-6.50); %Basophils 0.3 % (0.0-1.0); %Eosinophils 0.3 % (0.0-10.0); %Lymphocytes 11.8 % (21.0-51.0); %Monocytes 9.1 % (0.0-10.0); %Neutrophils 78.1 % (42.0-75.0); Hematocrit 43.5 % (36.0-47.0); Hemoglobin 14.5 g/dL (12.0-16.0); Mean Corpuscular HGB CONC 33.3 g/dL (32.0-36.0); Mean Corpuscular Hemoglobin 31.2 pg (27.0-31.0); Mean Corpuscular Volume 93.5 fl (78.0-98.0); Mean Platelet Volume 10.2 fL (7.4-10.4); Platelet Count 382 10x3/uL (130-400); Red Blood Cell (RBC) Count 4.65 mill/uL (4.20-5.40); White Blood Cell (WBC) Count 10.9 10x3/uL (4.8-10.8)
[2023-04-18] MEDS ORDERED: Sodium Chloride 0.9% 100 ML ONE (18:24)
[2023-04-18] MEDS ORDERED: cefTRIAXone (ROCEPHIN) 1 GM VIAL ONE (18:24)
[2023-04-18 18:25] LABS: ALT (SGPT) 22 U/L (8-55); AST (SGOT) 24 U/L (5-34); Albumin 4.2 g/dL (3.4-4.8); Alkaline Phosphatase 98 U/L (40-110); Anion Gap 15 mmol/L (10-20); BUN (Urea Nitrogen) 13 mg/dL (9.8-20.1); Bilirubin, Total 0.8 mg/dL (0.2-1.2); Calc. Creatinine Clearance 0 mL/min (70-130); Calcium 9.5 mg/dL (7.8-10.44); Carbon Dioxide 24 mmol/L (23-31); Chloride 102 mmol/L (98-107); Estimated GFR 81; Globulin 3.3 g/dL (2.4-3.5); Glucose 100 mg/dL (83-110); Potassium 3.9 mmol/L (3.5-5.1); Protein, Total 7.5 g/dL (5.8-8.1); Sodium 137 mmol/L (136-145)
[2023-04-18 18:29] LABS: Troponin I Less than 0.010 ng/mL (< 0.028)
[2023-04-18 18:41] LABS: Influenza A by NAA Not Detected (NotDetected); Influenza B by NAA Not Detected (NotDetected); SARS-CoV-2 NAA Rapid Test Not Detected (NotDetected)
[2023-04-18] MEDS ORDERED: Ondansetron PF 4 MG/2 ML Vial IVP PRN (19:57)
[2023-04-18] MEDS ORDERED: clonazePAM 0.5 MG TAB ONE (21:20)
[2023-04-19 00:57] VITALS: BMI 20.5
[2023-04-19 02:45] LABS: Legionella Urinary Ag Negative (Negative); Strep pneumo Urine Ag NEGATIVE (NEGATIVE)
[2023-04-19] MEDS: Furosemide 20 MG (2 mL) VIAL SLOW IVP SCH ×2 (02:51→06:31)
[2023-04-19] MEDS: Azithromycin 500 MG in Sodium Chloride 0.9% 250 ML 250 ML IVPB SCH (02:51)
[2023-04-19] MEDS: Acetaminophen 325 MG TAB PO PRN (03:06)
[2023-04-19 05:09] LABS: #Monocytes 0.9 thou/uL (0.11-0.59); #Neutrophils 8.4 thou/uL (1.40-6.50); %Basophils 0.4 % (0.0-1.0); %Eosinophils 0.4 % (0.0-10.0); %Lymphocytes 9.2 % (21.0-51.0); %Monocytes 8.9 % (0.0-10.0); %Neutrophils 80.7 % (42.0-75.0); Hematocrit 38.1 % (36.0-47.0); Hemoglobin 12.8 g/dL (12.0-16.0); Mean Corpuscular HGB CONC 33.6 g/dL (32.0-36.0); Mean Corpuscular Hemoglobin 30.7 pg (27.0-31.0); Mean Corpuscular Volume 91.4 fl (78.0-98.0); Mean Platelet Volume 10.4 fL (7.4-10.4); Platelet Count 332 10x3/uL (130-400); RBC Distribution Width 14.7 % (11.5-14.5); Red Blood Cell (RBC) Count 4.17 mill/uL (4.20-5.40); White Blood Cell (WBC) Count 10.4 10x3/uL (4.8-10.8)
[2023-04-19 05:46] LABS: Anion Gap 14 mmol/L (10-20); BUN (Urea Nitrogen) 9 mg/dL (9.8-20.1); Calc. Creatinine Clearance 59 mL/min (70-130); Calcium 8.3 mg/dL (7.8-10.44); Carbon Dioxide 21 mmol/L (23-31); Chloride 104 mmol/L (98-107); Estimated GFR 93; Glucose 108 mg/dL (83-110); Magnesium 1.8 mg/dL (1.6-2.6); Potassium 3.2 mmol/L (3.5-5.1); Sodium 136 mmol/L (136-145)
[2023-04-19 10:42] LABS: Fluid, Triglycerides 29 mg/dL (Not Available); Pleural Fluid, Amylase Less than 30 U/L (Not Available); Pleural Fluid, Glucose 112 mg/dL; Pleural Fluid, LDH 426 U/L (Not Available)
[2023-04-19 10:56] LABS: RBC Count-Automated (BF) 3777 /cu.mm; WBC/Nucleated-Auto (BF) 24 /cu.mm
[2023-04-19] MEDS: Potassium Chloride 20 MEQ TAB PO SCH ×2 (11:22→12:30)
[2023-04-19 11:38] LABS: Body Fluid Source Thoracentesis Fluid; Tube # EDTA
[2023-04-19 11:39] LABS: BF Color Yellow; Clarity Hazy (Clear)
[2023-04-19 11:43] LABS: BF Segmented Neutrophils 7 %; Cell Count Non Hematic 24 %; Lymphocytes 69 %
[2023-04-19 11:53] LABS: Fluid, pH - Pleural Fld Greater than 7.500 (7.60 - 7.66)
[2023-04-19] MEDS ORDERED: Ipratropium/Albuterol 3 ML NEB NEB PRN (15:19)
[2023-04-19] MEDS: Albumin 25% 25 GM (100 mL) BOT IVPB SCH (18:19)
[2023-04-19] MEDS: Sodium Chloride 0.9% 1,000 ML IV SCH (18:19)
[2023-04-19] MEDS: Sodium Chloride 0.9% 100 ML ONE (18:30)
[2023-04-19] MEDS: cefTRIAXone\\ROCEPHIN 2 GM in Sodium Chloride 0.9% 100 ML IVPB SCH (19:07)
[2023-04-19] MEDS: Amlodipine 5 MG TAB PO SCH (20:36)
[2023-04-19] MEDS: Benzonatate 100 MG CAP PO SCH (20:36)
[2023-04-19] MEDS: Atorvastatin Calcium 20 MG TAB PO SCH (20:36)
[2023-04-19] MEDS: guaiFENesin ER 600 MG TAB PO SCH (20:37)
[2023-04-19] MEDS: busPIRone HCl 5 MG TAB PO SCH (20:37)
[2023-04-19] MEDS: PARoxetine 20 MG TAB PO SCH (20:37)
[2023-04-19] MEDS: clonazePAM 0.5 MG TAB PO PRN (20:38)
[2023-04-19] MEDS: Heparin 5,000 UNITS/ML VIAL SC SCH (20:38)
[2023-04-19] MEDS: OLANZapine 5 MG TAB PO SCH (20:38)
[2023-04-20 04:48] LABS: #Eosinphils 0.2 thou/uL (0.0-0.7); #Monocytes 0.7 thou/uL (0.11-0.59); #Neutrophils 6.2 thou/uL (1.40-6.50); %Basophils 0.2 % (0.0-1.0); %Eosinophils 2.8 % (0.0-10.0); %Lymphocytes 16.9 % (21.0-51.0); %Monocytes 7.9 % (0.0-10.0); %Neutrophils 71.9 % (42.0-75.0); Hemoglobin 11.3 g/dL (12.0-16.0); Mean Corpuscular HGB CONC 33.2 g/dL (32.0-36.0); Mean Corpuscular Hemoglobin 31.4 pg (27.0-31.0); Platelet Count 322 10x3/uL (130-400); RBC Distribution Width 14.7 % (11.5-14.5); White Blood Cell (WBC) Count 8.6 10x3/uL (4.8-10.8)
[2023-04-20 04:57] LABS: Mean Corpuscular Volume 94.4 fl (78.0-98.0)
[2023-04-20 05:09] LABS: Anion Gap 15 mmol/L (10-20); BUN (Urea Nitrogen) 12 mg/dL (9.8-20.1); Calc. Creatinine Clearance 60 mL/min (70-130); Calcium 8.4 mg/dL (7.8-10.44); Carbon Dioxide 20 mmol/L (23-31); Chloride 108 mmol/L (98-107); Estimated GFR 93; Glucose 98 mg/dL (83-110); Magnesium 1.8 mg/dL (1.6-2.6); Potassium 3.6 mmol/L (3.5-5.1); Sodium 139 mmol/L (136-145)
[2023-04-20] MEDS: Lisinopril 20 MG TAB PO SCH (09:14)
[2023-04-21 04:16] LABS: #Eosinphils 0.2 thou/uL (0.0-0.7); #Monocytes 0.9 thou/uL (0.11-0.59); #Neutrophils 6.1 thou/uL (1.40-6.50); %Basophils 0.3 % (0.0-1.0); %Eosinophils 1.7 % (0.0-10.0); %Lymphocytes 19.4 % (21.0-51.0); %Monocytes 10.1 % (0.0-10.0); %Neutrophils 68.2 % (42.0-75.0); Hematocrit 35.9 % (36.0-47.0); Hemoglobin 12.1 g/dL (12.0-16.0); Mean Corpuscular HGB CONC 33.7 g/dL (32.0-36.0); Mean Corpuscular Hemoglobin 31.3 pg (27.0-31.0); Mean Corpuscular Volume 92.8 fl (78.0-98.0); Platelet Count 354 10x3/uL (130-400); RBC Distribution Width 14.6 % (11.5-14.5); Red Blood Cell (RBC) Count 3.87 mill/uL (4.20-5.40); White Blood Cell (WBC) Count 8.9 10x3/uL (4.8-10.8)
[2023-04-21 04:47] LABS: Anion Gap 14 mmol/L (10-20); BUN (Urea Nitrogen) 10 mg/dL (9.8-20.1); Calc. Creatinine Clearance 65 mL/min (70-130); Calcium 8.7 mg/dL (7.8-10.44); Carbon Dioxide 19 mmol/L (23-31); Chloride 109 mmol/L (98-107); Estimated GFR 95; Glucose 100 mg/dL (83-110); Magnesium 1.7 mg/dL (1.6-2.6); Potassium 3.6 mmol/L (3.5-5.1); Sodium 138 mmol/L (136-145)
[2023-04-21] MEDS: Amlodipine 5 MG TAB PO SCH (10:05)
[2023-04-21 12:37] VITALS: BP 134/63; TEMP 98.6
== END 2023-04-21 13:59 | disposition home or self-care (01) | DRG 193 ==
LOC: ERS 15:41 → 2SW 19:38
PROVIDERS: ADMIT Internal Medicine; ATTEND Internal Medicine
PROC: 0W993ZZ Drainage of Right Pleural Cavity, Percutaneous Approach (ICD-10-PCS; principal; 2023-04-19)
DX: J18.9 Pneumonia, unspecified organism (principal); J96.01 Acute respiratory failure with hypoxia; J90 Pleural effusion, not elsewhere classified; I10 Essential (primary) hypertension; E78.5 Hyperlipidemia, unspecified; F41.9 Anxiety disorder, unspecified; F32.9 Major depressive disorder, single episode, unspecified; F17.210 Nicotine dependence, cigarettes, uncomplicated; E87.6 Hypokalemia; Z90.710 Acquired absence of both cervix and uterus; Z79.899 Other long term (current) drug therapy
CPT/HCPCS: 36415; 71045; 71275; 80048; 80053; 81001; 82150; 82945; 83615; 83735; 83880; 83986; 84155; 84157; 84478; 84484; 85025; 85060; 87070; 87086; 87116; 87205; 87206; 87449; 87899; 88112; 88305; 89051; 93005; 93306; 96365; J0456; J0696; J1644; J1940; J3490; J7050; P9047; Q9967

== ENCOUNTER 2023-04-23 19:33 | Inpatient (IN) | payer MEDICARE, OTHER ==
[2023-04-23 20:06] LABS: #Eosinphils 0.2 thou/uL (0.0-0.7); #Monocytes 0.9 thou/uL (0.11-0.59); %Basophils 0.4 % (0.0-1.0); %Eosinophils 2.3 % (0.0-10.0); %Lymphocytes 13.9 % (21.0-51.0); %Monocytes 10.9 % (0.0-10.0); %Neutrophils 72.1 % (42.0-75.0); Hematocrit 36.7 % (36.0-47.0); Hemoglobin 12.5 g/dL (12.0-16.0); Mean Corpuscular HGB CONC 34.1 g/dL (32.0-36.0); Mean Corpuscular Hemoglobin 30.7 pg (27.0-31.0); Mean Corpuscular Volume 90.2 fl (78.0-98.0); Mean Platelet Volume 9.3 fL (7.4-10.4); Platelet Count 418 10x3/uL (130-400); RBC Distribution Width 14.5 % (11.5-14.5); Red Blood Cell (RBC) Count 4.07 mill/uL (4.20-5.40); White Blood Cell (WBC) Count 8.3 10x3/uL (4.8-10.8)
[2023-04-23 20:26] LABS: Troponin I Less than 0.010 ng/mL (< 0.028)
[2023-04-23 20:32] LABS: ALT (SGPT) 76 U/L (8-55); AST (SGOT) 74 U/L (5-34); Albumin 3.7 g/dL (3.4-4.8); Alkaline Phosphatase 146 U/L (40-110); Anion Gap 15 mmol/L (10-20); BUN (Urea Nitrogen) 14 mg/dL (9.8-20.1); Bilirubin, Total 0.6 mg/dL (0.2-1.2); Calc. Creatinine Clearance 0 mL/min (70-130); Calcium 8.9 mg/dL (7.8-10.44); Carbon Dioxide 24 mmol/L (23-31); Chloride 102 mmol/L (98-107); Estimated GFR 87; Glucose 107 mg/dL (83-110); Potassium 3.5 mmol/L (3.5-5.1); Protein, Total 6.7 g/dL (5.8-8.1); Sodium 137 mmol/L (136-145)
[2023-04-23] MEDS ORDERED: Nicotine 14 MG PATCH TD PRN (22:59)
[2023-04-23] MEDS ORDERED: Ondansetron ODT 4 MG TAB PO PRN (22:59)
[2023-04-23] MEDS ORDERED: Calcium Carbonate 500 MG ChewTAB PO PRN (22:59)
[2023-04-24 07:17] LABS: #Basophils 0.1 thou/uL (0.0-0.2); #Eosinphils 0.4 thou/uL (0.0-0.7); #Monocytes 1.3 thou/uL (0.11-0.59); %Basophils 0.5 % (0.0-1.0); %Eosinophils 3.3 % (0.0-10.0); %Lymphocytes 18.1 % (21.0-51.0); %Monocytes 11.8 % (0.0-10.0); Hematocrit 36.1 % (36.0-47.0); Mean Corpuscular HGB CONC 33.2 g/dL (32.0-36.0); Mean Corpuscular Hemoglobin 30.6 pg (27.0-31.0); Mean Corpuscular Volume 92.1 fl (78.0-98.0); Mean Platelet Volume 9.9 fL (7.4-10.4); Platelet Count 490 10x3/uL (130-400); RBC Distribution Width 14.7 % (11.5-14.5); Red Blood Cell (RBC) Count 3.92 mill/uL (4.20-5.40); White Blood Cell (WBC) Count 10.6 10x3/uL (4.8-10.8)
[2023-04-24 07:43] LABS: ALT (SGPT) 65 U/L (8-55); AST (SGOT) 46 U/L (5-34); Albumin 3.5 g/dL (3.4-4.8); Alkaline Phosphatase 134 U/L (40-110); Anion Gap 15 mmol/L (10-20); BUN (Urea Nitrogen) 8 mg/dL (9.8-20.1); Bilirubin, Total 0.8 mg/dL (0.2-1.2); Calc. Creatinine Clearance 62 mL/min (70-130); Calcium 8.9 mg/dL (7.8-10.44); Carbon Dioxide 23 mmol/L (23-31); Chloride 103 mmol/L (98-107); Estimated GFR 95; Glucose 95 mg/dL (83-110); Potassium 3.4 mmol/L (3.5-5.1); Protein, Total 6.5 g/dL (5.8-8.1); Sodium 138 mmol/L (136-145)
[2023-04-24] MEDS: Amoxicillin/Potassium Clav 875 MG TAB PO SCH (08:36)
[2023-04-24] MEDS: busPIRone HCl 10 MG TAB PO SCH (08:36)
[2023-04-24] MEDS: Famotidine 20 MG TAB PO SCH (08:36)
[2023-04-24] MEDS: Benzonatate 100 MG CAP PO SCH (08:36)
[2023-04-24] MEDS: Amlodipine 5 MG TAB PO SCH (08:37)
[2023-04-24] MEDS: Lisinopril 10 MG TAB PO SCH (08:37)
[2023-04-24] MEDS: clonazePAM 0.5 MG TAB PO PRN (08:42)
[2023-04-24] MEDS: Cefepime 2 GM in Sodium Chloride 0.9% 100 ML IVPB SCH (13:50)
[2023-04-24] MEDS: Azithromycin 500 MG in Sodium Chloride 0.9% 250 ML 250 ML IVPB SCH (15:26)
[2023-04-24] MEDS: Guaifenesin DM 100-10/5 ML UDCUP PO PRN (15:28)
[2023-04-24] MEDS: PARoxetine 20 MG TAB PO SCH (20:32)
[2023-04-24] MEDS: OLANZapine 5 MG TAB PO SCH (20:32)
[2023-04-24] MEDS: Cefepime 1 GM in Sodium Chloride 0.9% 100 ML IVPB SCH (23:07)
[2023-04-25 07:33] LABS: #Eosinphils 0.3 thou/uL (0.0-0.7); #Monocytes 0.9 thou/uL (0.11-0.59); #Neutrophils 6.6 thou/uL (1.40-6.50); %Basophils 0.3 % (0.0-1.0); %Eosinophils 3.2 % (0.0-10.0); %Lymphocytes 14.9 % (21.0-51.0); %Monocytes 9.7 % (0.0-10.0); %Neutrophils 71.4 % (42.0-75.0); Hematocrit 34.6 % (36.0-47.0); Hemoglobin 11.7 g/dL (12.0-16.0); Mean Corpuscular HGB CONC 33.8 g/dL (32.0-36.0); Mean Corpuscular Hemoglobin 31.1 pg (27.0-31.0); Mean Platelet Volume 9.9 fL (7.4-10.4); Platelet Count 466 10x3/uL (130-400); RBC Distribution Width 14.4 % (11.5-14.5); Red Blood Cell (RBC) Count 3.76 mill/uL (4.20-5.40); White Blood Cell (WBC) Count 9.3 10x3/uL (4.8-10.8)
[2023-04-25 07:56] LABS: Anion Gap 14 mmol/L (10-20); BUN (Urea Nitrogen) 6 mg/dL (9.8-20.1); Calc. Creatinine Clearance 60 mL/min (70-130); Calcium 8.8 mg/dL (7.8-10.44); Carbon Dioxide 24 mmol/L (23-31); Chloride 105 mmol/L (98-107); Estimated GFR 94; Glucose 98 mg/dL (83-110); Potassium 3.3 mmol/L (3.5-5.1); Sodium 140 mmol/L (136-145)
[2023-04-25] MEDS ORDERED: CEFAZOLIN 2 GM in Sodium Chloride 0.9% 100 ML IVPB SCH (11:00)
[2023-04-25] MEDS ORDERED: Bupivacaine PF 0.5% 30 ML VIAL ONE (11:01)
[2023-04-25] MEDS ORDERED: EPINEPHrine 1 MG/ML VIAL ONE (11:01)
[2023-04-25] MEDS ORDERED: PROPOFOL 20 ML ONE (11:22)
[2023-04-25] MEDS ORDERED: fentaNYL PF 100 MCG/2 ML SYRINGE ONE (11:22)
[2023-04-25] MEDS ORDERED: Lidocaine 2% PF 5 ML VIAL ONE (11:22)
[2023-04-25] MEDS ORDERED: PHENYLEPHRINE-NS 100 MCG/ML 10 ML SYRINGE ONE (11:22)
[2023-04-25] MEDS ORDERED: Rocuronium Bromide 10 MG/ML (10ML VIAL) ONE (11:22)
[2023-04-25] MEDS ORDERED: Dexamethasone 20 MG/5 ML VIAL ONE (11:23)
[2023-04-25] MEDS ORDERED: Ondansetron PF 4 MG/2 ML Vial ONE (11:23)
[2023-04-25] MEDS ORDERED: NEOSTIGMINE 3 MG/3 ML SYR 3 MG/3 ML SYRINGE ONE (12:57)
[2023-04-25] MEDS ORDERED: Glycopyrrolate 0.2 MG/ML 5 ML SYRINGE ONE (12:57)
[2023-04-25] MEDS ORDERED: traMADol HCl 50 MG TAB PO PRN ×2 (13:27)
[2023-04-25] MEDS ORDERED: fentaNYL 50 mcg/mL 1 mL Vial SLOW IVP PRN ×2 (13:27)
[2023-04-25] MEDS: Potassium Chloride 20 MEQ TAB PO SCH (17:43)
[2023-04-25] MEDS: Cefepime 2 GM in Sodium Chloride 0.9% 100 ML IVPB SCH (23:13)
[2023-04-26 06:18] LABS: #Monocytes 1.1 thou/uL (0.11-0.59); %Basophils 0.2 % (0.0-1.0); %Lymphocytes 8.4 % (21.0-51.0); %Monocytes 9.2 % (0.0-10.0); %Neutrophils 81.7 % (42.0-75.0); Hematocrit 34.3 % (36.0-47.0); Hemoglobin 11.3 g/dL (12.0-16.0); Mean Corpuscular HGB CONC 32.9 g/dL (32.0-36.0); Mean Corpuscular Volume 94.2 fl (78.0-98.0); Mean Platelet Volume 9.7 fL (7.4-10.4); Platelet Count 542 10x3/uL (130-400); RBC Distribution Width 14.5 % (11.5-14.5); Red Blood Cell (RBC) Count 3.64 mill/uL (4.20-5.40); White Blood Cell (WBC) Count 12.2 10x3/uL (4.8-10.8)
[2023-04-26 06:38] LABS: Anion Gap 13 mmol/L (10-20); BUN (Urea Nitrogen) 9 mg/dL (9.8-20.1); Calc. Creatinine Clearance 69 mL/min (70-130); Calcium 8.5 mg/dL (7.8-10.44); Carbon Dioxide 24 mmol/L (23-31); Chloride 108 mmol/L (98-107); Estimated GFR 97; Glucose 114 mg/dL (83-110); Potassium 4.2 mmol/L (3.5-5.1); Sodium 141 mmol/L (136-145)
[2023-04-26] MEDS: cefTRIAXone\\ROCEPHIN 2 GM in Sodium Chloride 0.9% 100 ML IVPB SCH (12:54)
[2023-04-26] MEDS ORDERED: Benzonatate 100 MG CAP PO PRN (16:09)
[2023-04-26] MEDS: busPIRone HCl 5 MG TAB PO SCH ×2 (16:27→20:55)
[2023-04-26] MEDS ORDERED: busPIRone HCl 10 MG TAB PO SCH (16:30)
[2023-04-26] MEDS: clonazePAM 0.5 MG TAB PO SCH (20:56)
[2023-04-27 04:18] LABS: #Eosinphils 0.2 thou/uL (0.0-0.7); #Monocytes 0.9 thou/uL (0.11-0.59); #Neutrophils 6.5 thou/uL (1.40-6.50); %Basophils 0.4 % (0.0-1.0); %Eosinophils 2.2 % (0.0-10.0); %Lymphocytes 17.4 % (21.0-51.0); %Monocytes 9.8 % (0.0-10.0); %Neutrophils 69.9 % (42.0-75.0); Hematocrit 33.2 % (36.0-47.0); Hemoglobin 10.8 g/dL (12.0-16.0); Mean Corpuscular HGB CONC 32.5 g/dL (32.0-36.0); Mean Corpuscular Hemoglobin 30.2 pg (27.0-31.0); Mean Corpuscular Volume 92.7 fl (78.0-98.0); Mean Platelet Volume 9.7 fL (7.4-10.4); Platelet Count 530 10x3/uL (130-400); RBC Distribution Width 14.6 % (11.5-14.5); Red Blood Cell (RBC) Count 3.58 mill/uL (4.20-5.40); White Blood Cell (WBC) Count 9.3 10x3/uL (4.8-10.8)
[2023-04-27 04:44] LABS: Anion Gap 11 mmol/L (10-20); BUN (Urea Nitrogen) 10 mg/dL (9.8-20.1); Calc. Creatinine Clearance 65 mL/min (70-130); Calcium 8.4 mg/dL (7.8-10.44); Carbon Dioxide 29 mmol/L (23-31); Chloride 107 mmol/L (98-107); Estimated GFR 96; Glucose 101 mg/dL (83-110); Potassium 3.5 mmol/L (3.5-5.1); Sodium 143 mmol/L (136-145)
[2023-04-27] MEDS ORDERED: Metoclopramide HCl 10 MG (2 mL) VIAL IVP SCH (05:45)
[2023-04-27] MEDS: Acetaminophen 325 MG TAB PO PRN (07:33)
[2023-04-27] MEDS: Phenol 177 ML BOT PO PRN (07:37)
[2023-04-27] MEDS ORDERED: Iopamidol-370 76% 500 ML MDV (1 ML CHARGE) ONE (14:06)
[2023-04-28 05:57] LABS: #Basophils 0.1 thou/uL (0.0-0.2); #Eosinphils 0.3 thou/uL (0.0-0.7); #Monocytes 0.9 thou/uL (0.11-0.59); #Neutrophils 5.9 thou/uL (1.40-6.50); %Basophils 0.6 % (0.0-1.0); %Eosinophils 3.3 % (0.0-10.0); %Lymphocytes 19.4 % (21.0-51.0); %Monocytes 10.4 % (0.0-10.0); Hematocrit 36.1 % (36.0-47.0); Hemoglobin 11.8 g/dL (12.0-16.0); Mean Corpuscular HGB CONC 32.7 g/dL (32.0-36.0); Mean Corpuscular Hemoglobin 30.4 pg (27.0-31.0); Mean Platelet Volume 9.8 fL (7.4-10.4); Platelet Count 533 10x3/uL (130-400); RBC Distribution Width 14.7 % (11.5-14.5); Red Blood Cell (RBC) Count 3.88 mill/uL (4.20-5.40)
[2023-04-28 06:20] LABS: Anion Gap 11 mmol/L (10-20); BUN (Urea Nitrogen) 9 mg/dL (9.8-20.1); Calc. Creatinine Clearance 64 mL/min (70-130); Calcium 8.7 mg/dL (7.8-10.44); Carbon Dioxide 29 mmol/L (23-31); Chloride 107 mmol/L (98-107); Estimated GFR 96; Glucose 94 mg/dL (83-110); Potassium 3.7 mmol/L (3.5-5.1); Sodium 143 mmol/L (136-145)
[2023-04-28] MEDS: clonazePAM 0.5 MG TAB PO SCH (12:52)
[2023-04-28 13:43] VITALS: BMI 19.5
[2023-04-28] MEDS ORDERED: Magnevist 469MG/ML 20 ML VIAL ONE (14:17)
[2023-04-29 04:40] LABS: #Eosinphils 0.3 thou/uL (0.0-0.7); #Monocytes 0.7 thou/uL (0.11-0.59); #Neutrophils 5.7 thou/uL (1.40-6.50); %Basophils 0.5 % (0.0-1.0); %Eosinophils 3.2 % (0.0-10.0); %Lymphocytes 20.2 % (21.0-51.0); %Monocytes 8.7 % (0.0-10.0); Hematocrit 36.3 % (36.0-47.0); Hemoglobin 11.9 g/dL (12.0-16.0); Mean Corpuscular HGB CONC 32.8 g/dL (32.0-36.0); Mean Corpuscular Hemoglobin 30.4 pg (27.0-31.0); Mean Corpuscular Volume 92.6 fl (78.0-98.0); Mean Platelet Volume 9.6 fL (7.4-10.4); Platelet Count 588 10x3/uL (130-400); RBC Distribution Width 14.6 % (11.5-14.5); Red Blood Cell (RBC) Count 3.92 mill/uL (4.20-5.40); White Blood Cell (WBC) Count 8.5 10x3/uL (4.8-10.8)
[2023-04-29 05:05] LABS: ALT (SGPT) 40 U/L (8-55); AST (SGOT) 21 U/L (5-34); Albumin 3.1 g/dL (3.4-4.8); Alkaline Phosphatase 109 U/L (40-110); Anion Gap 14 mmol/L (10-20); BUN (Urea Nitrogen) 8 mg/dL (9.8-20.1); Bilirubin, Direct 0.1 mg/dL (0.1-0.3); Bilirubin, Total Less than 0.2 mg/dL (0.2-1.2); Calc. Creatinine Clearance 64 mL/min (70-130); Calcium 8.9 mg/dL (7.8-10.44); Carbon Dioxide 27 mmol/L (23-31); Chloride 106 mmol/L (98-107); Estimated GFR 96; Glucose 93 mg/dL (83-110); Potassium 3.7 mmol/L (3.5-5.1); Sodium 143 mmol/L (136-145)
[2023-04-30 04:17] LABS: #Basophils 0.04 10x3/uL (0.0-0.2); %Basophils 0.6 % (0.0-1.0); %Eosinophils 3.9 % (0.0-10.0); %Lymphocytes 19.8 % (21.0-51.0); %Monocytes 9.6 % (0.0-10.0); %Neutrophils 65.7 % (42.0-75.0); Hematocrit 34.8 % (36.0-47.0); Hemoglobin 11.5 g/dL (12.0-16.0); Mean Corpuscular Volume 90.9 fL (78.0-98.0); Mean Platelet Volume 9.5 fL (7.4-10.4); Platelet Count 533 10x3/uL (130-400); RBC Distribution Width 14.5 % (11.5-14.5); Red Blood Cell (RBC) Count 3.83 mill/uL (4.20-5.40)
[2023-04-30 05:02] LABS: Anion Gap 11 mmol/L (10-20); BUN (Urea Nitrogen) 8 mg/dL (9.8-20.1); Calc. Creatinine Clearance 69 mL/min (70-130); Calcium 8.7 mg/dL (7.8-10.44); Carbon Dioxide 27 mmol/L (23-31); Chloride 107 mmol/L (98-107); Estimated GFR 97; Glucose 95 mg/dL (83-110); Potassium 3.8 mmol/L (3.5-5.1); Sodium 141 mmol/L (136-145)
[2023-05-01 04:58] LABS: #Basophils 0.05 10x3/uL (0.0-0.2); %Basophils 0.6 % (0.0-1.0); %Eosinophils 4.2 % (0.0-10.0); %Lymphocytes 21.6 % (21.0-51.0); %Monocytes 11.5 % (0.0-10.0); %Neutrophils 61.5 % (42.0-75.0); Hematocrit 36.1 % (36.0-47.0); Hemoglobin 11.9 g/dL (12.0-16.0); Mean Corpuscular Hemoglobin 30.6 pg (27.0-31.0); Mean Corpuscular Volume 92.8 fL (78.0-98.0); Platelet Count 587 10x3/uL (130-400); RBC Distribution Width 14.7 % (11.5-14.5); Red Blood Cell (RBC) Count 3.89 mill/uL (4.20-5.40)
[2023-05-01 05:22] LABS: Anion Gap 12 mmol/L (10-20); BUN (Urea Nitrogen) 8 mg/dL (9.8-20.1); Calc. Creatinine Clearance 59 mL/min (70-130); Calcium 8.7 mg/dL (7.8-10.44); Carbon Dioxide 28 mmol/L (23-31); Chloride 105 mmol/L (98-107); Estimated GFR 94; Glucose 97 mg/dL (83-110); Potassium 4.1 mmol/L (3.5-5.1); Sodium 141 mmol/L (136-145)
[2023-05-02] MEDS ORDERED: Dexamethasone 10 MG in Sodium Chloride 0.9% 50 ML IVPB SCH (06:00)
[2023-05-02 06:17] LABS: #Basophils 0.05 10x3/uL (0.0-0.2); %Basophils 0.6 % (0.0-1.0); %Eosinophils 3.8 % (0.0-10.0); %Lymphocytes 22.2 % (21.0-51.0); %Monocytes 12.3 % (0.0-10.0); %Neutrophils 60.5 % (42.0-75.0); Hematocrit 37.3 % (36.0-47.0); Hemoglobin 12.1 g/dL (12.0-16.0); Mean Corpuscular HGB CONC 32.4 g/dL (32.0-36.0); Mean Corpuscular Hemoglobin 30.5 pg (27.0-31.0); Mean Platelet Volume 9.2 fL (7.4-10.4); Platelet Count 630 10x3/uL (130-400); RBC Distribution Width 14.6 % (11.5-14.5); Red Blood Cell (RBC) Count 3.97 mill/uL (4.20-5.40)
[2023-05-02 06:44] LABS: Anion Gap 13 mmol/L (10-20); BUN (Urea Nitrogen) 11 mg/dL (9.8-20.1); Calc. Creatinine Clearance 60 mL/min (70-130); Carbon Dioxide 25 mmol/L (23-31); Chloride 106 mmol/L (98-107); Estimated GFR 94; Glucose 96 mg/dL (83-110); Potassium 4.3 mmol/L (3.5-5.1); Sodium 140 mmol/L (136-145)
[2023-05-02] MEDS: PALONOSETRON HCL 0.05 MG/ML 5 ML VIAL IVP SCH (10:24)
[2023-05-02] MEDS: SODIUM CHLORIDE 0.9% IVPB SCH (11:56)
[2023-05-02] MEDS: CARBOPLATIN IVPB SCH (11:56)
[2023-05-02] MEDS ORDERED: Ondansetron PF 4 MG/2 ML Vial IVP PRN (15:28)
[2023-05-03 04:29] LABS: #Basophils 0.03 10x3/uL (0.0-0.2); #Eosinphils Less than 0.03 10x3/uL (0.0-0.7); %Basophils 0.3 % (0.0-1.0); %Eosinophils 0.2 % (0.0-10.0); %Lymphocytes 13.5 % (21.0-51.0); %Monocytes 10.2 % (0.0-10.0); %Neutrophils 75.3 % (42.0-75.0); Hematocrit 35.3 % (36.0-47.0); Hemoglobin 11.3 g/dL (12.0-16.0); Mean Corpuscular Hemoglobin 30.1 pg (27.0-31.0); Mean Corpuscular Volume 93.9 fL (78.0-98.0); Mean Platelet Volume 9.2 fL (7.4-10.4); Platelet Count 593 10x3/uL (130-400); RBC Distribution Width 14.8 % (11.5-14.5); Red Blood Cell (RBC) Count 3.76 mill/uL (4.20-5.40)
[2023-05-03 04:52] LABS: Anion Gap 14 mmol/L (10-20); BUN (Urea Nitrogen) 16 mg/dL (9.8-20.1); Calc. Creatinine Clearance 59 mL/min (70-130); Calcium 9.2 mg/dL (7.8-10.44); Carbon Dioxide 26 mmol/L (23-31); Chloride 106 mmol/L (98-107); Estimated GFR 94; Glucose 116 mg/dL (83-110); Iron 122 ug/dL (50-170); Potassium 4.6 mmol/L (3.5-5.1); Sodium 141 mmol/L (136-145)
[2023-05-03 05:14] LABS: Ferritin 395.76 ng/mL (10-291)
[2023-05-03] MEDS: Megestrol Acetate 800 MG/20 ML UDCUP PO SCH (16:06)
[2023-05-03] MEDS: Nystatin 500,000 UNITS/5 ML UDCUP SSW SCH ×2 (16:06→20:05)
[2023-05-04 05:18] LABS: #Basophils 0.04 10x3/uL (0.0-0.2); %Basophils 0.5 % (0.0-1.0); %Eosinophils 2.8 % (0.0-10.0); %Lymphocytes 18.7 % (21.0-51.0); %Monocytes 8.6 % (0.0-10.0); %Neutrophils 69.1 % (42.0-75.0); Hematocrit 37.1 % (36.0-47.0); Hemoglobin 12.1 g/dL (12.0-16.0); Mean Corpuscular HGB CONC 32.6 g/dL (32.0-36.0); Mean Corpuscular Hemoglobin 30.6 pg (27.0-31.0); Mean Corpuscular Volume 93.7 fL (78.0-98.0); Mean Platelet Volume 9.3 fL (7.4-10.4); Platelet Count 609 10x3/uL (130-400); RBC Distribution Width 14.9 % (11.5-14.5); Red Blood Cell (RBC) Count 3.96 mill/uL (4.20-5.40)
[2023-05-04 06:03] LABS: Anion Gap 15 mmol/L (10-20); BUN (Urea Nitrogen) 17 mg/dL (9.8-20.1); Calc. Creatinine Clearance 61 mL/min (70-130); Calcium 9.2 mg/dL (7.8-10.44); Carbon Dioxide 24 mmol/L (23-31); Chloride 106 mmol/L (98-107); Estimated GFR 95; Glucose 100 mg/dL (83-110); Sodium 140 mmol/L (136-145)
[2023-05-04] MEDS: Megestrol Acetate 800 MG/20 ML UDCUP PO SCH (08:59)
[2023-05-04] MEDS: Thiamine 100 MG TAB PO SCH (09:00)
[2023-05-04] MEDS: Folic Acid 1 MG TAB PO SCH (09:00)
[2023-05-04] MEDS: Cyanocobalamin (Vitamin B-12) 1,000 MCG TAB PO SCH (09:00)
[2023-05-04] MEDS: Senokot S 8.6-50 MG TAB PO PRN (21:02)
[2023-05-04] MEDS: Mag-Al 1200 mg/1200 mg/30 ML UDCUP PO PRN (21:02)
[2023-05-05 10:04] VITALS: BP 112/67; TEMP 98.2
[2023-05-05] MEDS: PEGFILGRASTIM-JMDB 6 MG/0.6 ML SYRINGE SQ SCH (11:25)
== END 2023-05-05 12:22 | disposition home or self-care (01) | DRG 166 ==
LOC: ERS 19:33 → 2NO 21:23 → IMCU/EMU 04-24 17:01 → 2SW 04-26 20:02 → MSONC 04-30 16:33
PROVIDERS: ADMIT Student in an Organized Health Care Education/Training Program; ATTEND Family Medicine
PROC: 0BBN4ZX Excision of Right Pleura, Percutaneous Endoscopic Approach, Diagnostic (ICD-10-PCS; principal; 2023-04-25)
PROC: 0W994ZZ Drainage of Right Pleural Cavity, Percutaneous Endoscopic Approach (ICD-10-PCS; 2023-04-25)
PROC: 3E033XZ Introduction of Vasopressor into Peripheral Vein, Percutaneous Approach (ICD-10-PCS; 2023-04-25)
DX: C76.1 Malignant neoplasm of thorax (principal); J96.01 Acute respiratory failure with hypoxia; C34.90 Malignant neoplasm of unspecified part of unspecified bronchus or lung; J91.0 Malignant pleural effusion; I10 Essential (primary) hypertension; E78.5 Hyperlipidemia, unspecified; F17.210 Nicotine dependence, cigarettes, uncomplicated; R74.01 Elevation of levels of liver transaminase levels; M48.00 Spinal stenosis, site unspecified; F41.9 Anxiety disorder, unspecified; F32.A Depression, unspecified; Z88.7 Allergy status to serum and vaccine; Z88.1 Allergy status to other antibiotic agents; Z79.899 Other long term (current) drug therapy; Z98.890 Other specified postprocedural states; Z90.710 Acquired absence of both cervix and uterus
CPT/HCPCS: 36415; 70553; 71045; 74177; 80048; 80053; 80076; 82607; 82728; 83540; 83880; 84207; 84425; 84484; 85025; 88305; 88341; 88342; 93005; A7048; A9579; C1729; J0171; J0456; J0665; J0692; J0696; J1100; J2001; J2405; J2469; J2506; J2704; J3490; J7030; J7050; J9045; Q9967

== ENCOUNTER 2023-11-02 23:37 | Emergency (ER) | payer MEDICARE, OTHER ==
[2023-11-03] MEDS ORDERED: HYDROcodone/Acetaminophen 5/325 mg Tablet ONE (00:34)
== END 2023-11-03 02:14 | disposition home or self-care (01) ==
LOC: ERS 23:37
DX: S42.302A Unspecified fracture of shaft of humerus, left arm, initial encounter for closed fracture (principal); I10 Essential (primary) hypertension; W18.09XA Striking against other object with subsequent fall, initial encounter
CPT/HCPCS: 70450; 72125

== ENCOUNTER 2023-11-04 17:28 | Emergency (ER) | payer MEDICARE, OTHER | END 2023-11-04 19:21 | disposition home or self-care (01) | LOC: ERS 17:28 | DX: M25.512 Pain in left shoulder (principal); I10 Essential (primary) hypertension; R54 Age-related physical debility; E78.00 Pure hypercholesterolemia, unspecified; Z85.118 Personal history of other malignant neoplasm of bronchus and lung | CPT/HCPCS: 93005; 99283 ==

== ENCOUNTER 2023-11-25 11:45 | Outpatient (CLI) | payer MEDICARE, OTHER | END 2023-11-25 11:46 | disposition home or self-care (01) | LOC: PET 11:45 | PROVIDERS: ATTEND Internal Medicine | DX: C34.90 Malignant neoplasm of unspecified part of unspecified bronchus or lung (principal); J90 Pleural effusion, not elsewhere classified; R91.8 Other nonspecific abnormal finding of lung field; J86.9 Pyothorax without fistula | CPT/HCPCS: 78815; A9552 ==

== ENCOUNTER 2023-12-19 09:10 | Outpatient (CLI) | payer MEDICARE, OTHER ==
[2023-12-19] MEDS ORDERED: Magnevist 469MG/ML 20 ML VIAL ONE ×2 (11:02)
== END 2023-12-19 09:11 | disposition home or self-care (01) ==
LOC: MRI 09:10
PROVIDERS: ATTEND Internal Medicine
DX: R94.8 Abnormal results of function studies of other organs and systems (principal); C34.11 Malignant neoplasm of upper lobe, right bronchus or lung
CPT/HCPCS: 72197

== ENCOUNTER 2024-01-02 08:45 | Outpatient (CLI) | payer MEDICARE, OTHER | END 2024-01-02 08:46 | disposition home or self-care (01) | LOC: PET 08:45 | PROVIDERS: ATTEND Internal Medicine | DX: C76.1 Malignant neoplasm of thorax (principal); C34.90 Malignant neoplasm of unspecified part of unspecified bronchus or lung; J90 Pleural effusion, not elsewhere classified | CPT/HCPCS: 78815; A9552 ==

== ENCOUNTER 2024-01-22 09:42 | Inpatient (IN) | payer MEDICARE, OTHER ==
[2024-01-22 10:53] LABS: ALT (SGPT) 30 U/L (8-55); AST (SGOT) 35 U/L (5-34); Albumin 3.2 g/dL (3.4-4.8); Alkaline Phosphatase 101 U/L (40-110); Anion Gap 15 mmol/L (10-20); BUN (Urea Nitrogen) 13 mg/dL (9.8-20.1); Bilirubin, Total 0.6 mg/dL (0.2-1.2); Calc. Creatinine Clearance 0 mL/min (70-130); Calcium 8.7 mg/dL (7.8-10.44); Carbon Dioxide 26 mmol/L (23-31); Chloride 103 mmol/L (98-107); Estimated GFR 97; Globulin 3.3 g/dL (2.4-3.5); Glucose 82 mg/dL (83-110); Protein, Total 6.5 g/dL (5.8-8.1); Sodium 141 mmol/L (136-145)
[2024-01-22 11:00] LABS: Hematocrit 33.4 % (36.0-47.0); Hemoglobin 10.9 g/dL (12.0-16.0); Mean Corpuscular HGB CONC 32.6 g/dL (32.0-36.0); Mean Corpuscular Hemoglobin 28.2 pg (27.0-31.0); Mean Corpuscular Volume 86.5 fL (78.0-98.0); Mean Platelet Volume 9.3 fL (7.4-10.4); Platelet Count 310 10x3/uL (130-400); RBC Distribution Width 21.3 % (11.5-14.5); Red Blood Cell (RBC) Count 3.86 mill/uL (4.20-5.40)
[2024-01-22 11:21] LABS: Troponin I Less than 0.010 ng/mL (< 0.028)
[2024-01-22 11:26] LABS: Anisocytosis MODERATE=16-30 cells HPF (0-5); Band 9 % (5-11); Lymphocytes 1 % (21-51); Macrocytosis SLIGHT = 6-15 cells HPF (0-5); Neutrophil 89 % (42-75); Ovalocytes MODERATE= 6-15 cells HPF (0-1); Platelet Adequacy Comment Platelets Normal; Polychromasia SLIGHT = 2-3 cells HPF (0-2); Reactive Lymphocytes 1 % (0-10)
[2024-01-22] MEDS ORDERED: Ondansetron PF 4 MG/2 ML Vial IVP PRN (12:43)
[2024-01-22] MEDS ORDERED: hydrALAZINE 20 MG/ML VIAL SLOW IVP PRN (12:43)
[2024-01-22] MEDS ORDERED: Ondansetron ODT 4 MG TAB PO PRN (12:43)
[2024-01-22] MEDS ORDERED: Acetaminophen 325 MG TAB PO PRN (12:43)
[2024-01-22 14:24] VITALS: BMI 45.8
[2024-01-22] MEDS ORDERED: Piperacillin/Tazobactam 3.375 GM VIAL ONE (14:34)
[2024-01-22] MEDS ORDERED: HYDROcodone/Acetaminophen 5/325 mg Tablet ONE (14:34)
[2024-01-22] MEDS ORDERED: Sodium Chloride 0.9% 100 ML ONE (14:38)
[2024-01-22] MEDS: Piperacillin/Tazobactam 3.375 GM in Sodium Chloride 0.9% 100 ML IVPB SCH ×2 (14:49→17:41)
[2024-01-22] MEDS: HYDROcodone/Acetaminophen 5/325 mg Tablet PO PRN (14:50)
[2024-01-22] MEDS: Amlodipine 5 MG TAB PO SCH (20:36)
[2024-01-22] MEDS: clonazePAM 0.5 MG TAB PO SCH (20:46)
[2024-01-22] MEDS: busPIRone HCl 10 MG TAB PO SCH (20:51)
[2024-01-22] MEDS: Mirtazapine 15 MG TAB PO SCH (20:51)
[2024-01-22] MEDS: OLANZapine 2.5 MG TAB PO SCH (20:51)
[2024-01-23 06:29] LABS: Hematocrit 33.9 % (36.0-47.0); Hemoglobin 10.8 g/dL (12.0-16.0); Mean Corpuscular HGB CONC 31.9 g/dL (32.0-36.0); Mean Corpuscular Hemoglobin 28.1 pg (27.0-31.0); Mean Corpuscular Volume 88.1 fL (78.0-98.0); Mean Platelet Volume 9.6 fL (7.4-10.4); Platelet Count 303 10x3/uL (130-400); Red Blood Cell (RBC) Count 3.85 mill/uL (4.20-5.40)
[2024-01-23 06:54] LABS: Anion Gap 14 mmol/L (10-20); BUN (Urea Nitrogen) 10 mg/dL (9.8-20.1); Calc. Creatinine Clearance 123 mL/min (70-130); Calcium 8.5 mg/dL (7.8-10.44); Carbon Dioxide 29 mmol/L (23-31); Chloride 104 mmol/L (98-107); Estimated GFR 90; Glucose 80 mg/dL (83-110); Potassium 3.2 mmol/L (3.5-5.1); Sodium 144 mmol/L (136-145)
[2024-01-23 06:55] LABS: Anisocytosis SLIGHT = 6-15 cells HPF (0-5); Band 7 % (5-11); Hypochromia SLIGHT = 6-15 cells HPF (0-5); Monocytes 2 % (0-10); Neutrophil 91 % (42-75); Platelet Adequacy Comment Platelets Normal; Polychromasia SLIGHT = 2-3 cells HPF (0-2)
[2024-01-23] MEDS: Enoxaparin 40 MG (0.4 mL) SYRINGE SC SCH (08:04)
[2024-01-23] MEDS ORDERED: Iopamidol-370 76% 500 ML MDV (1 ML CHARGE) ONE (13:10)
[2024-01-23 16:42] VITALS: BMI 20.7
[2024-01-23] MEDS: busPIRone HCl 5 MG TAB PO SCH (17:08)
[2024-01-23] MEDS: Famotidine 20 MG TAB PO SCH (20:17)
[2024-01-24] MEDS ORDERED: Senokot 8.6 MG TAB PO PRN (11:50)
[2024-01-25 04:43] LABS: Hematocrit 32.4 % (36.0-47.0); Hemoglobin 10.4 g/dL (12.0-16.0); Mean Corpuscular HGB CONC 32.1 g/dL (32.0-36.0); Mean Corpuscular Hemoglobin 28.3 pg (27.0-31.0); Platelet Count 287 10x3/uL (130-400); Red Blood Cell (RBC) Count 3.68 mill/uL (4.20-5.40)
[2024-01-25 05:51] LABS: Band 7 % (5-11); Eosinophils 1 % (0-10); Lymphocytes 7 % (21-51); Monocytes 8 % (0-10); Neutrophil 76 % (42-75); Platelet Adequacy Comment Platelets Normal; RBC Morphology Within Normal Limits
[2024-01-25] MEDS ORDERED: Iopamidol 370 76% 100 ML VIAL ONE (10:19)
[2024-01-26 05:48] LABS: Hematocrit 35.5 % (36.0-47.0); Hemoglobin 11.3 g/dL (12.0-16.0); Mean Corpuscular HGB CONC 31.8 g/dL (32.0-36.0); Mean Corpuscular Hemoglobin 28.3 pg (27.0-31.0); Mean Platelet Volume 9.7 fL (7.4-10.4); Platelet Count 285 10x3/uL (130-400); RBC Distribution Width 22.3 % (11.5-14.5); Red Blood Cell (RBC) Count 3.99 mill/uL (4.20-5.40)
[2024-01-26 06:32] LABS: Anisocytosis MODERATE=16-30 cells HPF (0-5); Band 19 % (5-11); Elliptocytes SLIGHT = 2-5 cells HPF (0-1); Hypochromia SLIGHT = 6-15 cells HPF (0-5); Lymphocytes 6 % (21-51); Macrocytosis SLIGHT = 6-15 cells HPF (0-5); Microcytosis SLIGHT = 6-15 cells HPF (0-5); Monocytes 7 % (0-10); Myelocyte 2 % (0-0); Neutrophil 67 % (42-75); Platelet Adequacy Comment Platelets Normal; Poikilocytosis SLIGHT = 6-15 cells HPF (0-5); Polychromasia SLIGHT = 2-3 cells HPF (0-2); Smudge Cells 2.9 %
[2024-01-26] MEDS: dilTIAZem CD 120 MG CAP PO SCH (20:09)
[2024-01-27 04:32] LABS: Hematocrit 31.5 % (36.0-47.0); Hemoglobin 9.9 g/dL (12.0-16.0); Mean Corpuscular HGB CONC 31.4 g/dL (32.0-36.0); Mean Corpuscular Hemoglobin 28.1 pg (27.0-31.0); Mean Corpuscular Volume 89.5 fL (78.0-98.0); Mean Platelet Volume 9.4 fL (7.4-10.4); Platelet Count 280 10x3/uL (130-400); RBC Distribution Width 22.4 % (11.5-14.5); Red Blood Cell (RBC) Count 3.52 mill/uL (4.20-5.40)
[2024-01-27 04:42] LABS: Anion Gap 13 mmol/L (10-20); BUN (Urea Nitrogen) 12 mg/dL (9.8-20.1); Calc. Creatinine Clearance 167 mL/min (70-130); Calcium 8.3 mg/dL (7.8-10.44); Carbon Dioxide 27 mmol/L (23-31); Chloride 108 mmol/L (98-107); Estimated GFR 98; Glucose 102 mg/dL (83-110); Potassium 3.3 mmol/L (3.5-5.1); Sodium 145 mmol/L (136-145)
[2024-01-27 05:13] LABS: Eosinophils 2 % (0-10); Lymphocytes 9 % (21-51); Monocytes 2 % (0-10); Neutrophil 45 % (42-75)
[2024-01-27 05:21] LABS: Band 42 % (5-11); Platelet Adequacy Comment Platelets Normal; Polychromasia SLIGHT = 2-3 cells HPF (0-2); Toxic Granulation SLIGHT
[2024-01-27] MEDS: dilTIAZem CD 120 MG CAP PO SCH (08:22)
[2024-01-27] MEDS: Potassium Chloride 20 MEQ TAB PO SCH (11:10)
[2024-01-27 14:00] VITALS: BP 152/67; TEMP 97.7
== END 2024-01-27 14:01 | disposition home or self-care (01) | DRG 180 ==
LOC: ERS 09:42 → ERHOLD 11:50 → MSONC 16:54
PROVIDERS: ADMIT Internal Medicine; ATTEND Hospitalist
DX: C34.91 Malignant neoplasm of unspecified part of right bronchus or lung (principal); J96.21 Acute and chronic respiratory failure with hypoxia; I47.19 Other supraventricular tachycardia; J91.0 Malignant pleural effusion; D72.829 Elevated white blood cell count, unspecified; Z66 Do not resuscitate; I10 Essential (primary) hypertension; E78.00 Pure hypercholesterolemia, unspecified; F41.9 Anxiety disorder, unspecified; F32.A Depression, unspecified; K21.9 Gastro-esophageal reflux disease without esophagitis; R53.81 Other malaise; E87.6 Hypokalemia; Z92.25 Personal history of immunosuppression therapy; Z90.710 Acquired absence of both cervix and uterus; Z79.899 Other long term (current) drug therapy; Z87.891 Personal history of nicotine dependence; Z91.048 Other nonmedicinal substance allergy status; Z92.21 Personal history of antineoplastic chemotherapy
CPT/HCPCS: 36415; 71045; 71260; 71275; 80048; 80053; 83880; 84484; 85025; 87040; 93005; 93010; 96374; J1650; J2543; Q9967